=== PATIENT | male | born 1980 | race Caucasian/White ===

== ENCOUNTER 2020-01-11 01:05 | Emergency (ER) | payer MEDICAID, SELFPAY ==
[2020-01-11 01:51] VITALS: BP 136/78; BP 150/88; PULSE 60; PULSE 67; RESP 16; TEMP 36.9; O2SAT 100
--- NOTE | 2020-01-11 02:40 | ECG_ITS ---
Test Reason : OVERDOSE Blood Pressure : / mmHG Vent. Rate : 058 BPM Atrial Rate : 058 BPM P-R Int : 176 ms QRS Dur : 106 ms QT Int : 452 ms P-R-T Axes : 078 093 068 degrees QTc Int : 443 ms Sinus bradycardia Rightward axis Borderline ECG No previous ECGs available Referred By: Lucero Strauss Electronically Signed By:EVELYN JORGE MD
[2020-01-11 02:47] LABS: Amphetamine Screen Urine Not Detected (Not Detect); Barbiturates, Urine Not Detected (Not Detect); Benzodiazepines Screen Urine Not Detected (Not Detect); Cannabinoid Screen Urine Not Detected (Not Detect); Cocaine Screen Urine POSITIVE (Not Detect); Opiate Screen Urine POSITIVE (Not Detect); Phencyclidine Screen Urine Not Detected (Not Detect)
--- NOTE | 2020-01-11 04:09 | PC.NURSE ---
PT SLEEPING, GOOD RESPIRATORY EFFORT AND RATE. PT STATED EARLIER I THINK I'M WITHDRAWING.
--- NOTE | 2020-01-11 04:14 | ED.NAVMDI ---
HPI - Nausea/Vomiting/Diarrhea General Chief complaint: Overdose Stated complaint: VOMITING AFTER DRUG USE Time Seen by Provider: 01/11/20 01:38 Source: patient Mode of arrival: EMS History of Present Illness HPI Narrative: This is a 39-year-old male brought in by EMS after being found in wet clothing at a convenience store and vomiting. Patient denies vomiting any blood and says that he has been using cocaine and heroin but denies any alcohol use. Otherwise, he denies any fevers, chills, new cough, diarrhea, urinary symptoms. Related Data Allergies Allergy/AdvReac Type Severity Reaction Status Date / Time No Known Allergies Allergy Verified 01/11/20 02:21 Review of Systems Review of Systems: Pertinent positives and negatives as stated in HPI 10 point review of systems is otherwise negative. PMFSH Past Medical History Source: nursing notes reviewed Medical History Substance abuse Social History Social History Advance Directives: No Advance Directives Information Provided: No Physical Exam Vital Signs: Vital Signs: Vital Signs Temp Pulse Resp BP Pulse Ox 01/11/20 06:18 55 14 146/88 H 100 01/11/20 01:51 98.5 F 67 16 150/88 H 100 Body Mass Index 30.0 VITAL SIGNS: Reviewed. GENERAL: Well developed, well nourished, in no acute distress. HEAD: Normocephalic/atraumatic, EYES: PERRLA, EOMI intact without pain, no nystagmus/pallor/icterus noted EARS: Ext canals without abnormality, TMs non-bulging and non-erythematous NOSE: Nares patent bilateral OROPHARYNX: no oral lesions noted, posterior pharynx clear and non-erythematous without noted tonsillar enlargement/erythema/exudates NECK: Supple, no adenopathy LUNGS: Normal breath sounds. No adventitious sounds or accessory muscle use. SpO2<100%> CARDIOVASCULAR: Regular rate and rhythm without noted murmurs, no JVD or lower extremity edema. ABDOMEN: Soft, non-tender, non-distended with bowel sounds. No rigidity. No guarding. No palpable masses or hernias noted MUSCULOSKELETAL: No tenderness, deformities, or effusions noted on gross inspection. EXTREMITIES: No cyanosis, clubbing or edema. SKIN: Inspection of the skin reveals no rashes, ulcerations, jaundice, pallor, or petechiae. NEUROLOGIC: Alert and oriented x 4. Strength and sensation to light touch were grossly intact Course Course Course Narrative: This is a 39-year-old male with history and clinical presentation consistent with nausea and vomiting associated with drug use. Patient currently resting comfortably and on review urine drug screen is positive for cocaine and opiates. Patient has had complete resolution of his nausea and vomiting and has been able to tolerate something to drink and eat. He was discharged in stable condition after being offered detox which she promptly declined. MDM - Nausea/Vomiting/Diarrhea Lab Data Labs: Lab Results 01/11/20 Range/Units 02:30 Urine Opiates Screen POSITIVE H (Not Detect) Ur Barbiturates Screen Not Detected (Not Detect) Ur Phencyclidine Scrn Not Detected (Not Detect) Ur Amphetamines Screen Not Detected (Not Detect) U Benzodiazepines Scrn Not Detected (Not Detect) Urine Cocaine Screen POSITIVE H (Not Detect) U Marijuana (THC) Screen Not Detected (Not Detect) ECG Data Interpretation: SB, HR-58, no evidence of ischemia, MS/QTc is within normal limits Discharge Plan Discharge Clinical Impression: Cocaine intoxication Qualifiers: Complication of substance-induced condition: uncomplicated Qualified Code(s): F14.920 - Cocaine use, unspecified with intoxication, uncomplicated Patient Disposition: Home, Self-Care Instructions: Cocaine Abuse (ED) Additional Instructions: It is highly recommended that you should abstain from using any further cocaine or heroin. She had you ever decide to detox please do not hesitate to return to this facility for assistance in achieving this goal. The patient and/or family acknowledge understanding of results (as applicable), diagnosis, treatment plan, need for follow up, and symptoms that should prompt a return to the emergency room. Referrals: Physician,Unknown [Primary Care Provider] - 2 days
--- NOTE | 2020-01-11 04:46 | PC.NURSE ---
PT HAS BEEN SLEEPING FOR THE PAST FEW HOURS, GOOD RESPIRATORY EFFORT AND RATE.
[2020-01-11 06:18] VITALS: BP 146/88; PULSE 55; RESP 14; O2SAT 100
--- NOTE | 2020-01-11 06:21 | PC.NURSE ---
PT AWAKE AND ALERT, EATING BREAKFAST. NO VOMITING SINCE HIS INITIAL ARRIVAL TO ER.
== END 2020-01-11 07:40 | disposition home or self-care (01) ==
PROVIDERS: Emergency Provider Student in an Organized Health Care Education/Training Program
DX: F14.120 Cocaine abuse with intoxication, uncomplicated (principal)
CPT/HCPCS: 80307; 93005; 99283

== ENCOUNTER 2022-12-26 03:19 | Emergency (ER) | payer MEDICAID, SELFPAY ==
--- NOTE | ~2022-12-26 | XR_ITS ---
EXAMINATION: XR RIBS, RIGHT CLINICAL INFORMATION: Fall. Right rib pain. COMPARISON: Previous chest x-ray from earlier the same day TECHNIQUE: 3 views of the right ribs were obtained. FINDINGS: Lungs are clear. No consolidation, pneumothorax, or pleural effusion. The cardiomediastinal silhouette and pulmonary vasculature are normal. Question nondisplaced fractures of the right anterior seventh through 10th ribs. These are age indeterminate. XR/XR ribs RT 2V IMPRESSION: Question nondisplaced fractures of the right anterior seventh through 10th ribs.
--- NOTE | ~2022-12-26 | XR_ITS ---
EXAMINATION: XR CHEST CLINICAL INFORMATION: Fall COMPARISON: 07/03/2018 TECHNIQUE: Frontal view of the chest was obtained. FINDINGS: The lungs are clear with no focal consolidation. No evidence of pneumothorax, pulmonary edema, or pleural effusions. The cardiomediastinal silhouette is unremarkable. Subtle contour deformities of the lateral right eighth, ninth, and 10th ribs, which are age-indeterminate. XR/XR chest 1V IMPRESSION: No acute cardiopulmonary findings. Subtle contour deformities of the lateral right eighth, ninth, and 10th ribs which are age-indeterminate; clinical correlation recommended at this site in the setting of trauma.
[2022-12-26 03:31] VITALS: BP 160/106; PULSE 65; O2SAT 100; BMI 26.7
[2022-12-26 03:36] VITALS: BP 163/100; PULSE 57; RESP 18; O2SAT 100
[2022-12-26] MEDS: Acetaminophen 325 MG TABLET 650 MG PO (03:50)
[2022-12-26 03:54] VITALS: TEMP 36
--- NOTE | 2022-12-26 04:08 | PC.NURSE ---
pt BIBA from gas station for fall. pt a&ox3, pupils pinpoint bilaterally respirations even and unlabored. pt reports using IV heroin prior to arrival, pt reports tripping and falling off of the side of a curb outside of gas station. fall was unwitnessed. pt denies head strike, LOC and blood thinners. pt reports 8/10 right rib pain, no bruising noted. lung sounds clear bilaterally. security at bedside, pt changed over and belongings placed in decon.
--- NOTE | 2022-12-26 04:50 | PC.NURSE ---
pt sleeping comfortably. no visible distress, respiration even and unlabored.
[2022-12-26 05:42] VITALS: BP 160/96; PULSE 77; RESP 18; TEMP 36.2; O2SAT 99
--- NOTE | 2022-12-26 05:43 | PC.NURSE ---
pt repositioned, warm blanket given. pt denies pain at this time. vital signs reassessed.
--- NOTE | 2022-12-26 07:29 | ED_ITS ---
HPI - Fall General Chief Complaint: Fall Stated Complaint: fall after drug use Time Seen by Provider: 12/26/22 06:38 Source: patient and EMS Mode of arrival: EMS Limitations: no limitations History of Present Illness HPI Narrative: 42 year old male with pmhx of polysubstance use presenting to the ED this morning via EMS from gas station complaining of right rib pain s/p fall from standing height. Reports tripping over a curb at a gas station and falling onto his right side. Denies head strike. Denies LOC. Not on AC. Endorses heroin use prior to fall. Denies other illicit drug use or EtOH consumption. His only complaint at this time is right lower rib pain. Denies fever, chills, QUIROZ, dizziness, neck pain, chest pain, SOB, back pain, N/V, diarrhea, constipation, abdominal pain, or LE pain or swelling. Denies SI/HI. Denies AH/VH/TH. History limited due to patient's acute intoxication. Related Data Previous Rx's Medication Instructions Recorded naproxen 500 mg tablet 500 mg PO Q8-12H PRN pain (scale 12/26/22 score 4-6) #14 tabs Allergies Allergy/AdvReac Type Severity Reaction Status Date / Time No Known Allergies Allergy Verified 12/26/22 03:47 [No Known Allergies*] Review of Systems Review of Systems: Constitutional: No fever, chills, fatigue, night sweats, weight changes Eyes: No eye pain, swelling, redness, vision changes, discharge Cardio: No chest pain, palpitations, JORDAN, orthopnea, peripheral edema Pulm: No SOB, cough, sputum, wheezing, dyspnea, hemoptysis MSK: No back pain, neck pain, joint pain, myalgias, + rib pain Skin: No lesions, rashes Neuro: No weakness, numbness, paresthesias, LOC, dizziness, headache Psych: No anxiety/panic, depression, SI/HI, AH/VH All other systems reviewed and are negative. [facility] Past Medical History Attestation statement: The following information was validated with the patient. Source: old records reviewed and nursing notes reviewed Social History Social History Smoked in Last 30 Days: Yes Use of substances other than those prescribed or required for medical reasons: Yes Substance Use Type: Heroin Substance Use Frequency: Daily Last Used Substance: Just Prior to Admission Advance Directives: No Advance Directives Information Provided: No Physical Exam Vital Signs: Vital Signs: Last Vital Signs Temp 97.2 F 12/26/22 05:42 Pulse 50 12/26/22 12:35 Resp 16 12/26/22 12:35 BP 165/84 H 12/26/22 12:35 Pulse Ox 98 12/26/22 12:35 O2 Del Method Room Air 12/26/22 12:35 BMI result Body Mass Index 26.7 VSS Const: General: cooperative, alert and awake Orientation/consciousness: patient oriented x3 Limitations: no limitations HEENT: Head: Yes normal to inspection Ears: hearing grossly normal bilaterally General nose exam: Normal external nose present Mouth: moist mucous membranes abnormal (dry mucous membranes) and malodorous breath Eyes: Conjunctivae: conjunctivae normal Sclerae: sclerae normal Pupils: Pinpoint pupils EOM: EOMs intact bilaterally Neck: Neck: Yes normal visual inspection and Yes no meningeal signs Chest: Other: Anterior/lateral/posterior chest wall without ecchymosis, rash, or deformity. + Tender to palpation over the anterolateral left ribs without deformity or crepitus. Resp: Effort & Inspection: normal respiratory effort Auscultation: clear to auscultation bilaterally Cardio: Rate: regular rate Rhythm: regular rhythm Heart sounds: S1 normal heart sound present and S2 normal heart sound present Peripheral pulses: Peripheral pulses 2+ throughout GI: Inspection: Yes normal to inspection Palpation (GI): Soft to palpation, nontender, no guarding and hepatosplenomegaly present : General: Yes no CVA tenderness Back/Spine/Pelvis: Back: no CVA tenderness Skin: General skin exam: no rashes or lesions noted Neuro: General: patient oriented x3, gait normal, moves all extremities and no meningeal signs Cranial nerves: Yes CN's II-XII intact bilaterally Extrem: General: Yes normal to inspection and Yes full ROM Course Course Course Narrative: 729-- patient's vital signs are stable. on initial examination patient tells me that he tripped over a curb at a gas station. Since this time has had severe right lower rib pain without overlying ecchymoses, deformity, or crepitus. Tender to palpation. CXR obtained by overnight provider does not show acute cardiopulmonary findings however does show subtle contour deformities of the lateral right 8th 9th and 10th ribs with ?fracture, age indeterminate. No concern for flail chest or official trauma. 0807-- Discussed case with my attending, Dr. Garcia, who recommends follow up right rib xrays to determine acute fractures. Patient asking for stronger pain medication secondary to rib pain >> Toradol and Lidoderm patch ordered. 0914-- Patient currently requesting more pain medication. As patient has a history of polysubstance abuse, I explained to the patient that I do not feel co mfortable giving him narcotics. He is now refusing the x-ray of his ribs. I advised the patient that the x-ray of his ribs will help us to better evaluate his rib fractures. States he does not want this and would like to call his ride and leave. I explained to the patient that leaving the ED against medical advice may result in further complications and even . He expressed understanding of this and still would like to leave. 1022-- Discussed case with Kathie Hernandez from addiction medicine who has since evaluated the patient. The patient has expressed desire to restart his methadone. States that if he is able to restart his methadone he will consider proceeding with the xrays. He has now called and canceled his ride. Kathie states that she will touch base with me regarding a starting dose for methadone. 1056-- Kathie recommends a one time dose of Methadone 30mg > ordered. X-ray right ribs ordered. 1300-- x-ray right ribs showing ?nondiscplaced fracture of the lateral right 7- 10th ribs. No evidence of pneumothorax or effusion. > informed patient of results and will educate him on incentive spirometry. Patient states that he is feeling better after receiving his methadone dose. He plans to follow up with [facility] tomorrow for his methadone and will be provided with a last dose letter today. Patient's vitals are still stable. He is awake, speaking in full sentences and expresses understanding. His grandmother will be taking him home. He will be sent home with naproxen for rib pain along with incentive spirometry. Additionally will send him home with 1 dose of Narcan. Educated on strict return precautions. Patient agreeable with plan. All questions answered. Stable for discharge. Reevaluation(s) Reevaluation #1: I discussed case with the MARCOS Dumas: 08:07 Medications Administered Discontinued Medications Generic Name Dose Route Start Last Admin Trade Name Rhea PRN Reason Stop Dose Admin Acetaminophen 650 mg 12/26/22 03:46 12/26/22 03:50 Acetaminophen 325 Mg Tablet PO 12/26/22 03:47 650 mg ONCE ONE Administration Acetaminophen 975 mg 12/26/22 07:53 12/26/22 08:32 Acetaminophen 325 Mg Tablet PO 12/26/22 07:54 Not Given ONCE ONE Ketorolac Tromethamine 30 mg 12/26/22 08:06 12/26/22 08:27 Ketorolac Tromethamine 30 Mg/Ml Vial IM 12/26/22 08:07 30 mg ONCE ONE Administration Lidocaine 1 patch 12/26/22 08:02 12/26/22 08:27 Lidocaine 4 % Patch Adh..Patch TRANSDERMA 12/26/22 08:03 1 patch ONCE ONE Administration Protocol Methadone HCl 30 mg 12/26/22 10:55 12/26/22 11:11 Methadone Hcl 20 Mg/2 Ml Oral.Conc PO 12/26/22 10:56 30 mg ONCE ONE Administration Naloxone HCl 8 mg 12/26/22 09:15 12/26/22 09:43 Naloxone Hcl Nasal Take Home 4 Mg [place] NOSTRILALT 12/26/22 09:16 8 mg ONCE ONE Administration Medical Decision Making Medical Decision Making [facility] Narrative: 42 year old male with pmhx of polysubstance use presenting to the ED this morning via EMS from gas station complaining of right rib pain s/p fall from standing height. VSS. Neuro exam nonfocal. Anterior/lateral/posterior chest wall without ecchymosis, rash, or deformity. + Tender to palpation over the anterolateral left ribs without deformity or crepitus. Concern for polysubstance use vs etoh intoxication. Concern for msk strain/ sprain vs fracture. Low suspicion for flail chest, pneumothorax or pulmonary contusion. No concern for SI or HI. Plan at this Imaging ordered by overnight provider reviewed. Will order right rib xrays and UDS. Differential Diagnosis Differential Diagnoses: The differential diagnosis associated with the presentation includes As above. Admission/Observation Not indicated. Lab Data [facility] Lab Attestation statement: I reviewed the patient's lab results. As above. Independent Interpretation I performed an independent interpretation of an: Plain X-Ray Interpretation: CXR without acute cardio pulmonary findings, agree with radiologist's interpretation. Radiology Impression Discussion of test interpretation with radiology: I have reviewed the radiologist's reading. Radiologist Impression: XR chest 1V IMPRESSION: No acute cardiopulmonary findings. Subtle contour deformities of the lateral right eighth, ninth, and 10th ribs which are age-indeterminate; clinical correlation recommended at this site in the setting of trauma. Independent Historian Clinical information obtained from an independent historian. History obtained from or confirmed by: EMS External Record Review External record reviewed: Inpatient record Tests considered The following testing was considered but not selected: Given patient's fall I considered ordering CT head/C-spine however patient denies head strike or LOC and neuro exam is nonfocal. Not indicated at this time. Prescription Management I considered prescription management with: Pain Medication Critical Care Time Critical Care Time Critical Care Time: No Discharge Plan Discharge Clinical Impression: Closed fracture of rib Patient Disposition: Home, Self-Care Instructions: Rib Fracture (ED), Pulmonary Contusion (ED) Additional Instructions: The x-ray of your ribs today showed possible fracture of your front 7-10 ribs. Naproxen is a pain reliever that has been sent to your pharmacy. Take this as needed for pain. Take this with food. You have also been educated on and provided with incentive spirometry. Use this to help expand her lungs. Do not do drugs. This can kill you. You have been provided with 1 dose of Narcan to go home with. Return to the emergency department if her symptoms persist or worsen. In the case of an emergency call 911. Prescriptions: New naproxen 500 mg tablet 500 mg PO Q8-12H PRN (Reason: pain (scale score 4-6)) Qty: 14 0RF Referrals: [facility] [Provider Group] [facility] [place] [facility] [Provider Group] Interventions: ED Discharge Assessment Last Done: 12/26/22 14:59 Discharge Date/Time: 12/26/22 15:00
[2022-12-26] MEDS: Ketorolac Tromethamine 30 MG/ML VIAL IM (08:27)
[2022-12-26] MEDS: Lidocaine 4 % Patch ADH..PATCH 1 PATCH TRANSDERMA (08:27)
[2022-12-26] MEDS: Naloxone HCl Nasal TAKE HOME 4 MG SPRAY 8 MG NOSTRILALT (09:43)
--- NOTE | 2022-12-26 10:33 | MHC.RECOVRN ---
Met with pt in [facility] after consult placed to CARE Team for substance use. Pt had presented to ED after a fall and question of broken ribs. Pt laying in bed, asleep, wakes to voice but sedated, constricted pupils. Pt reports using heroin, 1 bundle daily, IV, last use 12 hours ago. Also reports cocaine, 0.5 grams, IV, last use a couple days ago. Pt reports he has called for a ride and requested to dc in anticipation of withdrawal and pain r/t ribs. Pt reports he has been on methadone in the past, last 80 mg at [facility] in [place]. Pt reports he will stay for further workup and treatment if methadone can be restarted. Educated pt on appropriate time to restart methadone. Pt agreeable to cancel ride and stay in ED. Discussed with provider, plan to re-evaluate pt and initiate methadone if/when appropriate.
--- NOTE | 2022-12-26 10:50 | PC.NURSE ---
seen by CARE team awaiting methadone verification
--- NOTE | 2022-12-26 11:04 | MHC.RECOVRN ---
Met with pt to follow up after pt reportedly becoming agitated. Pt laying in bed, awake, alert, easily engages in conversation. Pt reporting body aches, muscle cramps, appears slightly diaphoretic, pupils less constricted. Pt requesting methadone. Discussed with provider, plan to initiate methadone 30 mg.
[2022-12-26] MEDS: methADONE HCl 20 MG/2 ML ORAL.CONC 30 MG PO (11:11)
--- NOTE | 2022-12-26 11:15 | PC.NURSE ---
pt medicated per MAY, plan for rib XR - pt agreeable at this time.
--- NOTE | 2022-12-26 11:25 | MHC.RECOVRN ---
Pts referral sent to [facility]. Pt to present to [facility] tomorrow with last dose letter.
[2022-12-26 12:35] VITALS: BP 165/84; PULSE 50; RESP 16; O2SAT 98
--- NOTE | 2022-12-26 13:09 | PC.NURSE ---
pt given last dose letter in signed and sealed envelope, incentive spirometer training provided, narcan at bedside. pt contacted sober ride for discharge home.
== END 2022-12-26 15:00 | disposition home or self-care (01) ==
PROVIDERS: Emergency Provider Emergency Medicine
DX: S22.31XA Fracture of one rib, right side, initial encounter for closed fracture (principal); R07.89 Other chest pain; R07.81 Pleurodynia; W01.10XA Fall on same level from slipping, tripping and stumbling with subsequent striking against unspecified object, initial encounter; Y93.9 Activity, unspecified; Y92.480 Sidewalk as the place of occurrence of the external cause; Y99.9 Unspecified external cause status
CPT/HCPCS: 71045; 71100; 96372; 99284; J1885

== ENCOUNTER 2023-07-04 19:53 | Emergency (ER) | payer MEDICAID, SELFPAY ==
[2023-07-04 20:00] VITALS: BP 158/78; PULSE 82; O2SAT 97
--- NOTE | 2023-07-04 20:01 | ED_ITS ---
HPI - Psych General Stated Complaint: DRUG USE, 1 BAG OF HEROINE Time Seen by Provider: 07/04/23 20:01 Source: patient Mode of arrival: ambulatory Limitations: no limitations History of Present Illness HPI Narrative: 42 yo male admits to using heroin prior to arrival states he was in alley using and it was witnessed no overdose no need for narcan he was given the option by police to either go to nursing home or the hospital. He wants to leave on arrival agrees to VS and will take home narcan has no SI. He is going back to his methadone clinic tomorrow complaint: substance abuse Onset (ago): month(s) Duration: intermittent History of same: Yes Relieving factors: none Exacerbating factors: drug use Context: recent drug abuse Associated psychiatric symptoms: none Associated symptoms: denies other symptoms Treatments prior to arrival: none Related Data Previous Rx's ?Medication ?Instructions ?Recorded naproxen 500 mg tablet 500 mg PO Q8-12H PRN pain (scale 12/26/22 score 4-6) #14 tabs Allergies Allergy/AdvReac Type Severity Reaction Status Date / Time No Known Allergies Allergy Verified 01/17/23 16:06 Review of Systems Review of Systems: Constitutional : No Fever, No Chills, No Fatigue ENT/Mouth : No sore throat, No Rhinorrhea Eyes: No Eye Pain, No Swelling, No Redness Cardiovascular : No Chest Pain, No SOB, No Dyspnea on Exertion Respiratory : No Cough, No Sputum Gastrointestinal : No Nausea, No Vomiting, No Diarrhea, No abdominal Pain Musculoskeletal : No joint pain, No Myalgias, No Joint Swelling Skin : No Skin Lesions, No rash Neuro : No Weakness, No Numbness, No Dizziness, no Headache Psych : No Anxiety/Panic, No Depression All other systems reviewed and are negative [facility] Past Medical History Attestation statement: The following information was validated with the patient. Source: old records reviewed Medical History Substance abuse Social History Social History Patient Tobacco Use Status: Tobacco use Unknown Substance Use Type: Heroin Physical Exam Vital Signs: Appearance: Alert. Oriented X3. No acute distress. Eyes: Pupils equal, round and reactive to light. 3mm ENT: Pharynx normal. atraumatic Neck: Normal inspection. Neck supple. CVS: Normal heart rate and rhythm. Pulses normal. Respiratory: No respiratory distress. Breath sounds normal. Abdomen: Soft and nontender. Skin: Skin warm and dry. Normal skin color. Normal skin turgor. Extremities: No lower extremity edema. No calf ttp Neuro: Oriented X 3. No motor deficit. No sensory deficit. Steady gait Medical Decision Making Medical Decision Making MDM Narrative: 42 yo male with PMH of substance abuse he denies SI he admits to heroin use no narcan given at this time will DC home with narcan he refuses SUDE evaluation plans to go to his own methadone clinic tomorrow. At this time I do not feel I can section him and he is free to go. Differential Diagnosis Differential Diagnoses: The differential diagnosis associated with the pr esentation includes substance abuse Admission/Observation Consideration of admission/observation: Escalation of care including admission/observation considered refuses - no narcan given prehospital he is not intoxicated here wants to leave with narcan Independent Historian Clinical information obtained from an independent historian. History obtained from or confirmed by: EMS External Record Review External record reviewed: Inpatient record Prescription Management I considered prescription management with: Other Discharge Plan Discharge Clinical Impression: Opiate use Instructions: Opioid Use Disorder (ED) Additional Instructions: carry narcan with you at all times return for any worsening symptoms or concerns. Prescriptions: No Action naproxen 500 mg tablet 500 mg PO Q8-12H PRN (Reason: pain (scale score 4-6)) Qty: 14 0RF Print Language: Hebrew
[2023-07-04] MEDS: Naloxone HCl Nasal TAKE HOME 4 MG SPRAY 8 MG NOSTRILALT (20:07)
[2023-07-04 20:18] VITALS: BP 00/00; PULSE 0; RESP 0; TEMP -17.7; TEMP 0; O2SAT 0; BMI 27.5
--- NOTE | 2023-07-04 20:23 | PC.NURSE ---
Pt aox4. Arrived via EMS after bystander called police for pt using IVD. Pt reports not having any medical concerns and does not need to be here. Denies pain. Denies SI/HI. CANDY. MD at bedside.
[2023-07-04 20:24] VITALS: BP 143/92; PULSE 83; RESP 18; TEMP 36.7; O2SAT 98
== END 2023-07-04 20:25 | disposition home or self-care (01) ==
PROVIDERS: Emergency Provider Emergency Medicine
DX: F11.90 Opioid use, unspecified, uncomplicated (principal)
CPT/HCPCS: 99282; 99283

== ENCOUNTER 2023-12-28 18:08 | Emergency (ER) | payer MEDICAID, SELFPAY ==
[2023-12-28 18:15] VITALS: BP 150/86; PULSE 84; O2SAT 98
[2023-12-28 18:25] VITALS: BP 136/79; PULSE 88; RESP 20; TEMP 37.9; O2SAT 96; BMI 25.8
[2023-12-28 18:27] VITALS: BP 136/79; PULSE 88; RESP 20; TEMP 37.9; O2SAT 96
--- NOTE | 2023-12-28 18:48 | ED_ITS ---
HPI - Overdose General Chief Complaint: Overdose Stated Complaint: found unconscious, heroine use, no narcan given Time Seen by Provider: 12/28/23 18:22 Source: patient and EMS Mode of arrival: EMS Limitations: no limitations History of Present Illness ED Provider: Dr. Josette Mendoza HPI Narrative: Patient comes to the emergency room via ambulance. Patient was found slumped over a super marked after using 2-3 bags of heroin. Narcan was given. Patient states that this was an accidental overdose, patient adamant that he does not have any SI or HI thoughts or prior attempts. Related Data Previous Rx's ?Medication ?Instructions ?Recorded naproxen 500 mg tablet 500 mg PO Q8-12H PRN pain (scale 12/26/22 score 4-6) #14 tabs Allergies Allergy/AdvReac Type Severity Reaction Status Date / Time No Known Allergies Allergy Verified 12/28/23 18:26 Review of Systems Review of Systems: Constitutional : No Weight loss, No Fever, No Chills, No Night Sweats, No Fatigue, No Malaise ENT/Mouth : No Hearing loss, No Ear Pain, No Nasal Congestion, No Sinus Pain, No Hoarseness, No sore throat, No Rhinorrhea, No Swallowing Difficulty Eyes: No Eye Pain, No Swelling, No Redness, No Foreign Body, No Discharge, No Vision Changes Cardiovascular : No Chest Pain, No SOB, No Dyspnea on Exertion, No Orthopnea, No Edema, No Palpitations Respiratory : No Cough, No Sputum, No Wheezing, No Smoke Exposure, No Dyspnea Gastrointestinal : No Nausea, No Vomiting, No Diarrhea, No Constipation, No abdominal Pain, No Hematochezia, No Melena Genitourinary : no irregular bleeding, No Dysuria, No Urinary Frequency, No He maturia, No Urinary Incontinence, No Urgency, No Flank Pain, No Urinary Flow Changes, No Hesitancy Musculoskeletal : No joint pain, No Myalgias, No Joint Swelling Skin : No Skin Lesions, No rash Neuro : No Weakness, No Numbness, No Paresthesias, No Loss of Consciousness, No Dizziness, No Headache Psych : No Anxiety/Panic, No Depression, No SI/HI/AH/VH, admits to polysubstance abuse Heme/Lymph: No Bruising, No Bleeding,No Lymphadenopathy Endocrine : No Polyuria, No Polydipsia, No Temperature Intolerance PMFSH Past Medical History Medical History Substance abuse Social History Social History Patient Tobacco Use Status: Tobacco use Unknown Substance Use Type: Heroin Do you have a plan to hurt others: No Plan Physical Exam Vital Signs: Vital Signs: Last Vital Signs Temp 100.2 F 12/28/23 18:27 Pulse 88 12/28/23 18:27 Resp 20 12/28/23 18:27 BP 136/79 12/28/23 18:27 Pulse Ox 96 12/28/23 18:27 O2 Del Method Room Air 12/28/23 18:27 BMI result Body Mass Index 25.8 Const: Other: Appearance: Alert. Oriented X3. No acute distress. Eyes: Pupils equal, round and reactive to light. ENT: Pharynx normal. Neck: Normal inspection. Neck supple. No lymph nodes noted. No crepitus CVS: Normal heart rate and rhythm. Pulses normal. Normal S1 and S2 Respiratory: No respiratory distress. Breath sounds normal. No Wheezing. No rales Abdomen: Soft and nontender. No rigidity. No distention. Skin: Skin warm and dry. Normal skin color. Normal skin turgor. Extremities: No lower extremity edema. No Lacerations. No Rash Neuro: Oriented X 3. No motor deficit. No sensory deficit. Moving all extremities. No slurred speech. CN 2 through 12 grossly intact Psych: calm, cooperative, normal affect Medical Decision Making Medical Decision Making MDM Narrative: Patient was here approximately 1 hour, patient awake, alert and oriented x3, vitals stable. Patient refusing any further care, requesting to be discharged after he eats a turkey sandwich. -patient has not had any oxygen desaturations, patient's gait steady -patient was given a prescription of naloxone for home -declined to be seen by the care team or oil recovery unit operator Discharge Plan Discharge Clinical Impression: Drug overdose Patient Disposition: Home, Self-Care Instructions: Adult Overdose (ED) Additional Instructions: Please follow-up with your primary care physician tomorrow. If you have any worsening or new symptoms, please return to the emergency room or call 911 Prescriptions: No Action naproxen 500 mg tablet 500 mg PO Q8-12H PRN (Reason: pain (scale score 4-6)) Qty: 14 0RF Print Language: Ukrainian
--- NOTE | 2023-12-28 18:55 | PC.NURSE ---
Pt. refused discharge VS
[2023-12-28 18:56] VITALS: BP 136/79; PULSE 88; RESP 20; TEMP 37.9; O2SAT 96
[2023-12-28] MEDS: Naloxone HCl Nasal TAKE HOME 4 MG SPRAY 8 MG NOSTRILALT (18:58)
== END 2023-12-28 18:59 | disposition home or self-care (01) ==
LOC: HO.ED 18:59
PROVIDERS: Emergency Provider Emergency Medicine
DX: T40.1X1A Poisoning by heroin, accidental (unintentional), initial encounter (principal); R40.4 Transient alteration of awareness; Y92.89 Other specified places as the place of occurrence of the external cause
CPT/HCPCS: 99284

== ENCOUNTER 2024-03-23 01:02 | Emergency (ER) | payer MEDICAID, SELFPAY ==
[2024-03-23] VITALS (12 sets, daily range): BP systolic 95–162; BP diastolic 52–100; PULSE 36–60; RESP 7–16; TEMP 34.8–36.5; O2SAT 97–100; BMI 23.1
--- NOTE | 2024-03-23 | ECG_ITS ---
Test Reason : OD Blood Pressure : / mmHG Vent. Rate : 038 BPM Atrial Rate : 038 BPM P-R Int : 196 ms QRS Dur : 106 ms QT Int : 552 ms P-R-T Axes : 067 086 063 degrees QTc Int : 438 ms Marked sinus bradycardia Abnormal ECG When compared with ECG of 11-JAN-2020 03:28, Vent. rate has decreased BY 20 BPM Referred By: Generic ED Physician Electronically Signed By:Santiago Henson
--- NOTE | ~2024-03-23 | CT_ITS ---
CLINICAL HISTORY: etoh? od, AMS, possible fall CT head without contrast Comparison: None Findings: No intracranial mass, midline shift, hydrocephalus, or acute hemorrhage. No acute process in sinuses or mastoids. No acute bony abnormality. Impression: No acute intracranial process This document has been electronically signed by: Anselmo Moreira MD on 03/23/2024 02:49:10
--- NOTE | 2024-03-23 01:29 | ED_ITS ---
HPI - General Adult General Chief complaint: Overdose Stated complaint: OD was given Narcan, A&O Time Seen by Provider: 03/23/24 01:25 Source: EMS Mode of arrival: EMS Limitations: other History of Present Illness ED Provider: Dr. Josette Mendoza HPI narrative: patient comes to the emergency room via ambulance. According to EMS, the patient was found by a bystander unresponsive at the entrance of a market. Bystander administered Narcan and called 911. When EMS arrived, it was noted that patient is bradycardic, heart rate between the 30s and 40s, blood pressure in the low 90s. Patient is only wearing a sweater, current temperature outside is 27 F. does not seem that patient had any falls but still unclear. Patient is under the influence of drugs, responds to name but is unable to give any history. Related Data Previous Rx's ?Medication ?Instructions ?Recorded naproxen 500 mg tablet 500 mg PO Q8-12H PRN pain (scale 12/26/22 score 4-6) #14 tabs Allergies Allergy/AdvReac Type Severity Reaction Status Date / Time No Known Allergies Allergy Verified 03/23/24 01:29 Review of Systems 2 Review of Systems: Yes Unobtainable due to mental status PMFSH Past Medical History Medical History Substance abuse Social History Social History Patient Tobacco Use Status: Tobacco use Unknown Substance Use Type: Heroin Physical Exam ED Vital Signs: Vital Signs - 24 hr 03/23/24 01:27 03/23/24 02:27 Temperature 95.4 F L 95.5 F L Pulse Rate 37 L 49 L Respiratory Rate 7 L 12 Blood Pressure 95/52 L 138/93 H Pulse Oximetry 100 98 Oxygen Delivery Method Room Air Room Air BMI result Body Mass Index 23.1 Const Other: Appearance: Very somnolent, responds to name and falls right back asleep Eyes: pinpoint pupils bilaterally, round and reactive to light. ENT: Pharynx normal. Neck: Normal inspection. Neck supple. No lymph nodes noted. No crepitus CVS: Normal heart rate and rhythm. Pulses normal. Normal S1 and S2 Respiratory: No respiratory distress. Breath sounds normal. No Wheezing. No rales Abdomen: Soft and nontender. No rigidity. No distention. Skin: cold to touch, Normal skin color. Normal skin turgor. Extremities: No lower extremity edema. No Lacerations. No Rash Neuro: Oriented X 3. No motor deficit. No sensory deficit. Moving all extremities. No slurred speech. CN 2 through 12 grossly intact Psych: calm, only responds to name and falls back asleep Course Course Course Narrative: patient has very dry oral mucosa, we will start IV fluids. All of patient's labs and head CT pending patient's respiratory rate drops to 6, intranasal Narcan will be given - rectal temperature 90 degrees fight F. Patient being warmed with warm blankets Medications Administered Discontinued Medications Generic Name Dose Route Start Last Admin Trade Name Freq PRN Reason Stop Dose Admin Sodium Chloride 1,000 mls @ 999 mls/hr 03/23/24 01:33 03/23/24 01:57 Ns IVCONT 03/23/24 02:33 999 mls/hr .Q1H1M ONE Administration Naloxone HCl 4 mg 03/23/24 01:33 03/23/24 01:30 Naloxone Hcl Nasal 4 Mg [place] NOSTRILALT 03/23/24 01:34 4 mg ONCE ONE Administration Medical Decision Making Medical Decision Making [facility] Narrative: my interpretation of EKG: Sinus rhythm, heart rate 38, no ST segment depression or elevation, questionable U-waves, QTC 438 my interpretation of labs: Patient's hematology and chemistry within normal limits. ETOH negative. Patient has not provided a urine sample for urine toxicology head CT does not show any acute intracranial process. Patient is on a Eileen Hugger and has warm blankets, rectal temperature gradually improving - Patient is under physician observation started at 03:29 Lab Data 03/23/24 01:24 03/23/24 01:26 Labs: Lab Results 03/23/24 03/23/24 Range/Units 01:24 01:26 WBC 8.5 (4.8-10.8) X10*3/uL RBC 5.23 (4.60-5.80) X10*6/uL Hgb 14.9 (14.0-18.0) g/dl Hct 43.3 (42.0-52.0) % MCV 82.8 (80.0-98.0) fL MCH 28.5 (27.0-33.0) pg MCHC 34.4 (31.0-36.0) g/dl RDW 13.3 (11.0-16.0) % Plt Count 223 (160-400) X10*3/uL MPV 9.5 (9.4-12.4) fL Absolute Nucleated RBC 0.000 (0.0-0.012) X10*3/uL Nucleated RBC % (auto) 0.0 (0.0-0.2) /100WBC Sodium 141 (135-145) mmol/L Potassium 3.6 (3.3-5.1) mmol/L Chloride 106 (96-108) mmol/L Carbon Dioxide 30 H (22-29) mmol/L Anion Gap 9 L (12-20) BUN 24 H (9-16) mg/dL Creatinine 0.94 (0.5-1.4) mg/dL Estim Creat Clear Calc 105.4 Estimated GFR > 60 Random Glucose 78 (60-115) mg/dL Calcium 8.9 (8.4-10.2) mg/dL Total Bilirubin 0.3 (0.0-1.0) mg/dL AST 31 (5-37) U/L ALT 34 (0-40) U/L Alkaline Phosphatase 60 (39-117) U/L Total Protein 6.5 (6.5-8.0) g/dL Albumin 3.5 (3.5-5.0) g/dL Ethyl Alcohol < 10 mg/dL Critical Care Time Critical Care Time Critical Care Time: Yes Total Critical Care Time: 60 Attestation: I have personally provided critical care time. Time includes review of lab data, radiology results, discussion with consultants, and monitoring for potential decompensation. Intervention performed as documented. Discharge Plan Discharge Clinical Impression: Drug overdose, Hypothermia Patient Disposition: Still a Patient Instructions: Acute Hypothermia (ED), Adult Overdose (ED) Additional Instructions: Please follow-up with your primary care physician tomorrow. If you have any worsening or new symptoms, please return to the emergency room or call 911 Prescriptions: No Action naproxen 500 mg tablet 500 mg PO Q8-12H PRN (Reason: pain (scale score 4-6)) Qty: 14 0RF Print Language: Vincentian
[2024-03-23] MEDS: Naloxone HCl Nasal 4 MG SPRAY NOSTRILALT (01:30)
[2024-03-23 01:32] LABS: Hematocrit 43.3 % (42.0-52.0); Hemoglobin 14.9 g/dl (14.0-18.0); Mean Corpuscular HGB Conc 34.4 g/dl (31.0-36.0); Mean Corpuscular Hemoglobin 28.5 pg (27.0-33.0); Mean Corpuscular Volume 82.8 fL (80.0-98.0); Mean Platelet Volume 9.5 fL (9.4-12.4); Platelet Count 223 X10*3/uL (160-400); Red Blood Count 5.23 X10*6/uL (4.60-5.80); Red Cell Distribution Width 13.3 % (11.0-16.0); White Blood Count 8.5 X10*3/uL (4.8-10.8)
--- NOTE | 2024-03-23 01:32 | PC.NURSE ---
Pt arousable to touch and name calling able to answer some questions, HR in 30's, pt hypothermic rectal temp 95.4, RR:7, spo2:100%, IV #20 placed in R-AC, labs drawn and sent, pt endorses snorting cocaine and smoking marijuana but denies other drug use. Security confiscated belongings. aware, verbal order to give Narcan; given and pt lifted head up but fell back to sleep. minimally effective.
--- NOTE | 2024-03-23 01:48 | MHC.EDTECH ---
Patient BIBA,security at bedside to assist with changeover,patient was placed on the traffic monitor specialist,vitals taken,BP is low,continuous rectal probe placed patient's temp 95.4,RN/MD at bedside, EKG taken per order and signed by provider. All Belongings locked in [place].
[2024-03-23 01:56] LABS: Alanine Aminotransferase 34 U/L (0-40); Albumin Level 3.5 g/dL (3.5-5.0); Anion Gap 9 (12-20); Aspartate Amino Transferase 31 U/L (5-37); Bilirubin Total 0.3 mg/dL (0.0-1.0); Blood Urea Nitrogen 24 mg/dL (9-16); Calcium 8.9 mg/dL (8.4-10.2); Carbon Dioxide 30 mmol/L (22-29); Chloride 106 mmol/L (96-108); Creatinine Clr Calc Pharmacy 105.4; Estimated Glomerular Filt Rate > 60; Ethanol < 10 mg/dL; Glucose Random 78 mg/dL (60-115); Potassium 3.6 mmol/L (3.3-5.1); Sodium 141 mmol/L (135-145); Total Protein 6.5 g/dL (6.5-8.0)
[2024-03-23] MEDS: 0.9 % Sodium Chloride 1,000 ML 999 ML IVCONT (01:57)
[2024-03-23 02:33] LABS: Alkaline Phosphatase 60 U/L (39-117)
--- NOTE | 2024-03-23 06:31 | MHC.EDTECH ---
Rounds and vitals completed,continuous rectal probe removed,patient is awake,eating a turkey sandwich,pt given a can of gingerale and cheese sticks.
[2024-03-23] MEDS: methADONE HCl 20 MG/2 ML ORAL.CONC 30 MG PO (12:26)
--- NOTE | 2024-03-23 12:48 | PC.NURSE ---
Pt rests quietly for most of the morning. Upon waking, Pt requests food and Methadone. Pt met with licensed real estate broker and plan in place to start Methadone and seek placement at detox location. Pt medicated with 30mg Methadone per MAR and Pt is grateful. Pt calls this RN to bedside and states he now wishes to be d/c'd from ED and no longer wishes for placement at a detox facility. Pt states he needs to get some of his affairs in order prior to being away for treatment. continuous process rotary drum tanner made aware and met with Pt to provider resources. ED provider at bedside now. Awaiting dispo.
[2024-03-23] MEDS: Naloxone HCl Nasal TAKE HOME 4 MG SPRAY 8 MG NOSTRILALT (13:05)
--- NOTE | 2024-03-23 13:05 | MHC.RECOVRN ---
Met with pt again after methadone administration. Pt no longer interested in ATS. Wants to go home as he has some things he needs to take care of before seeking treatment for his substance use disorder. Written materials and resources regarding harm reduction and ATS facilities provided and reviewed with pt. Pt stated he is planning to walk-in to the [facility] on Monday to discuss MAT.
== END 2024-03-23 13:14 | disposition home or self-care (01) ==
PROVIDERS: Emergency Provider Emergency Medicine
DX: T50.901A Poisoning by unspecified drugs, medicaments and biological substances, accidental (unintentional), initial encounter (principal); R40.0 Somnolence; R00.1 Bradycardia, unspecified; Y92.89 Other specified places as the place of occurrence of the external cause; F19.10 Other psychoactive substance abuse, uncomplicated
CPT/HCPCS: 36415; 70450; 80053; 80307; 85027; 93005; 96360; 96361; 99285; S9485

== ENCOUNTER → 2024-03-23 01:18 | Outpatient (BNV) | payer MEDICAID, SELFPAY | PROVIDERS: Emergency Provider Emergency Medicine; Visit Provider Internal Medicine Cardiovascular Disease | DX: R94.31 Abnormal electrocardiogram [ECG] [EKG] (principal) | CPT/HCPCS: 93010 ==

== ENCOUNTER → 2024-03-23 01:26 | Outpatient (BNV) | payer MEDICAID, SELFPAY | PROVIDERS: Emergency Provider Emergency Medicine; Visit Provider Radiology Diagnostic Radiology | DX: S06.9X9A Unspecified intracranial injury with loss of consciousness of unspecified duration, initial encounter (principal) | CPT/HCPCS: 70450 ==

== ENCOUNTER 2024-10-24 02:24 | Emergency (ER) | payer OTHER, SELFPAY ==
[2024-10-24] VITALS (8 sets, daily range): BP systolic 137–181; BP diastolic 71–98; PULSE 49–58; RESP 11–15; TEMP 36.9–37.2; O2SAT 96–100; BMI 26.6
--- NOTE | 2024-10-24 | ECG_ITS ---
Test Reason : OD Blood Pressure : */* mmHG Vent. Rate : 55 BPM Atrial Rate : 55 BPM P-R Int : 180 ms QRS Dur : 116 ms QT Int : 466 ms P-R-T Axes : 70 85 70 degrees QTcB Int : 445 ms Sinus bradycardia Minimal voltage criteria for LVH, may be normal variant ( Rai product ) Nonspecific T wave abnormality Abnormal ECG When compared with ECG of 23-Mar-2024 01:18, ST no longer elevated in Inferior leads T wave inversion now evident in Anterior leads Referred By: Generic ED Physician Electronically Signed By: NAS ROSAS MD
[2024-10-24 03:11] LABS: MANUAL DIFF FLAG NO
[2024-10-24 03:16] LABS: Hematocrit 42.5 % (42.0-52.0); Hemoglobin 14.3 g/dl (14.0-18.0); Imm Gran Abs Auto 0.02 X10*3/uL (0.00-0.03); Imm Gran Pct Auto 0.3 % (0.0-0.4); Lymphocytes Absolute Auto 2.0 X10*3/uL (1.2-4.9); Mean Corpuscular HGB Conc 33.6 g/dl (31.0-36.0); Mean Corpuscular Hemoglobin 27.8 pg (27.0-33.0); Mean Corpuscular Volume 82.7 fL (80.0-98.0); NRBC Abs Auto 0.000 X10*3/uL (0.0-0.012); NRBC Pct Auto 0.0 /100WBC (0.0-0.2); Platelet Count 185 X10*3/uL (160-400); Red Blood Count 5.14 X10*6/uL (4.60-5.80); White Blood Count 7.5 X10*3/uL (4.8-10.8)
[2024-10-24 03:26] LABS: Alanine Aminotransferase 35 U/L (0-40); Albumin Level 3.5 g/dL (3.5-5.0); Alkaline Phosphatase 65 U/L (39-117); Anion Gap 13 (12-20); Aspartate Amino Transferase 31 U/L (5-37); Blood Urea Nitrogen 23 mg/dL (9-16); Calcium 8.3 mg/dL (8.4-10.2); Carbon Dioxide 28 mmol/L (22-29); Chloride 108 mmol/L (96-108); Creatinine Clr Calc Pharmacy 97.0; Estimated Glomerular Filt Rate > 60; Potassium 3.8 mmol/L (3.3-5.1); Sodium 145 mmol/L (135-145); Total Protein 7.0 g/dL (6.5-8.0)
--- NOTE | 2024-10-24 03:32 | ED.GENADULT ---
HPI - General Adult General Chief complaint: ETOH/Substance Use Stated complaint: ETOH heroin use 30min ago Time Seen by Provider: 10/24/24 03:18 Source: EMS Mode of arrival: EMS Limitations: altered mental status History of Present Illness ED Provider: Dr. Josette Mendoza HPI narrative: Patient comes to the emergency room from a convenience supermarket. Patient was found sitting up and sleeping. PD was called and then EMS arrived and brought the patient in. Patient did not receive any Narcan. Patient very so somnolent. Denies SI or HI Related Data Previous Rx's ?Medication ?Instructions ?Recorded naproxen 500 mg tablet 500 mg PO Q8-12H PRN pain (scale 12/26/22 score 4-6) #14 tabs Allergies Allergy/AdvReac Type Severity Reaction Status Date / Time No Known Allergies Allergy Verified 10/24/24 02:38 Review of Systems Review of Systems: Yes Other (Under the influence of drugs, very somnolent) PMFSH Past Medical History Medical History Substance abuse Social History Social History Patient Tobacco Use Status: Tobacco use Unknown Substance Use Type: Heroin Physical Exam ED Exam Exam: Appearance: Alert. Very somnolent Eyes: Pinpoint pupils bilaterally, Pupils equal, round and reactive to light. ENT: Pharynx normal. Neck: Normal inspection. Neck supple. No lymph nodes noted. No crepitus CVS: Normal heart rate and rhythm. Pulses normal. Normal S1 and S2 Respiratory: No respiratory distress. Breath sounds normal. No Wheezing. No rales Abdomen: Soft and nontender. No rigidity. No distention. Skin: Skin warm and dry. Normal skin color. Normal skin turgor. Extremities: No lower extremity edema. No Lacerations. No Rash Neuro: Very somnolent, easily arousable and then falls back asleep Psych: Somnolent, under the influence of drugs Vital Signs: Vital Signs - 24 hr 10/24/24 02:37 10/24/24 02:39 Temperature 98.9 F 98.9 F Pulse Rate 58 58 Respiratory Rate 15 15 Blood Pressure 153/71 H 153/71 H Pulse Oximetry 97 97 Oxygen Delivery Method Room Air Room Air BMI result Body Mass Index 26.6 Course Course Course Narrative: Patient reports heroin abuse. Very somnolent, unable to give much history. No signs of trauma. Patient's vitals are stable Medical Decision Making Medical Decision Making [facility] Narrative: Patient is under physician observation waiting to become more awake and alert. Differential Diagnosis Differential Diagnoses: The differential diagnosis associated with the presentation includes (Polysubstance abuse, alcohol abuse) Admission/Observation Consideration of admission/observation: Escalation of care including admission/observation considered (Patient is under physician observation waiting to become more sober and awake and alert) Lab Data 10/24/24 03:05 10/24/24 03:05 Labs: Lab Results 10/24/24 Range/Units 03:05 WBC 7.5 (4.8-10.8) X10*3/uL RBC 5.14 (4.60-5.80) X10*6/uL Hgb 14.3 (14.0-18.0) g/dl Hct 42.5 (42.0-52.0) % MCV 82.7 (80.0-98.0) fL MCH 27.8 (27.0-33.0) pg MCHC 33.6 (31.0-36.0) g/dl RDW 14.1 (11.0-16.0) % Plt Count 185 (160-400) X10*3/uL MPV 9.1 L (9.4-12.4) fL Immature Gran % (Auto) 0.3 (0.0-0.4) % Neut % (Auto) 60.3 (45-73) % Lymph % (Auto) 26.3 (20-40) % [place] % (Auto) 10.0 (2-11) % Eos % (Auto) 2.3 (0-4) % Baso % (Auto) 0.8 (0-2) % Lymph # (Auto) 2.0 (1.2-4.9) X10*3/uL [place] # (Auto) 0.8 (0.1-1.2) X10*3/uL Eos # (Auto) 0.2 (0.0-0.4) X10*3/uL Baso # (Auto) 0.1 (0.0-0.2) X10*3/uL Abs Immat Gran (auto) 0.02 (0.00-0.03) X10*3/uL Absolute Neuts (auto) 4.5 (2.0-8.3) x10*3/uL Absolute Nucleated RBC 0.000 (0.0-0.012) X10*3/uL Nucleated RBC % (auto) 0.0 (0.0-0.2) /100WBC Sodium 145 (135-145) mmol/L Potassium 3.8 (3.3-5.1) mmol/L Chloride 108 (96-108) mmol/L Carbon Dioxide 28 (22-29) mmol/L Anion Gap 13 (12-20) BUN 23 H (9-16) mg/dL Creatinine 0.93 (0.5-1.4) mg/dL Estim Creat Clear Calc 97.0 Estimated GFR > 60 Random Glucose 101 (60-115) mg/dL Calcium 8.3 L D (8.4-10.2) mg/dL Total Bilirubin 0.4 (0.0-1.0) mg/dL AST 31 (5-37) U/L ALT 35 (0-40) U/L Alkaline Phosphatase 65 (39-117) U/L Total Protein 7.0 (6.5-8.0) g/dL Albumin 3.5 (3.5-5.0) g/dL Ethyl Alcohol < 10 mg/dL Critical Care Time Critical Care Time Critical Care Time: Yes Total Critical Care Time: 35 Attestation: I have personally provided critical care time. Time includes review of lab data, radiology results, discussion with consultants, and monitoring for potential decompensation. Intervention performed as documented. Discharge Plan Discharge Clinical Impression: Heroin abuse Patient Disposition: Home, Self-Care Instructions: Opioid Use Disorder (ED) Additional Instructions: Please follow-up with your primary care physician tomorrow. If you have any worsening or new symptoms, please return to the emergency room or call 911 Overdose You were seen in our Emergency Department for an overdose today. You received narcan in order to reverse the effects of overdose. Narcan only lasts about 45 min to 1 hour in the system. You may have been given narcan to take home with you today, please keep it near you if you are going to use again, so others can use it if needed.? The number one risk for fatal overdose is using alone? [facility] is a 17/10 hotline where you can be on the phone with someone while you use, and they can call for help if they suspect an overdose: [phone] Things to look out for when you leave include severe vomiting or diarrhea, headaches, muscle cramps, fever, coughing, chest pain, or if you feel so short of breath you cannot walk to the bathroom. Please seek care and return any time for worsening symptoms.? You may have been provided with safer injection?items, please take time to take care of YOU and your health. Use new supplies whenever possible to lessen the chances of infections and other illnesses.? If you need more supplies, please go [facility],? [address] [place] [address] OR you can call or text to coordinate delivery of safer supplies. If you decide you want to stop or cut down on how much you?re using, please call the numbers on the list provided to you or you can come to our outpatient Addiction Treatment office [facility] (M-F 9am-5p) [address] [place] [address], [address] [place], [place]. [phone] Prescriptions: No Action naproxen 500 mg tablet 500 mg PO Q8-12H PRN (Reason: pain (scale score 4-6)) Qty: 14 0RF Print Language: Iranian
[2024-10-24] MEDS: Naloxone HCl Nasal TAKE HOME 4 MG SPRAY 8 MG NOSTRILALT ×2 (06:05→13:19)
--- NOTE | 2024-10-24 08:17 | PC.NURSE ---
Assumed care of pt approx 0700, pt resting in stretcher with eyes closed and no apparent s/s of distress. Respirations even and unlabored. Sinus argenis on monitor.
--- OUTSIDE RECORDS SUMMARY | 2024-10-24 11:46 | XMS_ITS | Clinical Summary ---
Author Organization [employer] Address [address] [place] [address] Care Team Providers Care Surgical Services Manager Name Role Phone Unavailable Primary Care Provider Unavailabl e Social History Tobacco Use Types Packs/Day Years Used Date Smoking Tobacco: Never Assessed Sex and Gender Information Value Date Recorded Sex Assigned at Not on file Legal Sex Male 1:51 PM EST Gender Identity Not on file Sexual Orientation Not on file Plan of Treatment Health Maintenance Due Date Last Done Comments CT Colonography 1978 Colonoscopy 1978 Colorectal Cancer Screening 1978 Depression Screening 1978 FIT DNA/Cologuard 1978 FIT 1978 FOBT 1978 HIV Screening 1978 Lipid Panel 1978 SDOH Screening 1978 Sigmoidoscopy 1978 Disability Screening 1978 Alcohol/Substance Use Screening 1990 Tobacco Screening 1990 Family Planning (PISQ) 1993 HPV Vaccines (1 - Male 3-dos e series) 1993 Hepatitis C Screening 1996 DTaP/Tdap/Td Vaccines (1 - Tdap) 1997 Hepatitis B Vaccines (1 of 3 - 19+ 3-dose series) 1997 COVID-19 Vaccine ( - 2023-2 5 season) 2023 Influenza Vaccine (#1) 2024 Zoster Vaccines (1 of 2) 2028 RSV Patients and Pa tients Aged 60 years or older (1 - 1-dose 75+ series) 2053 HIB Vaccines Aged Out No longer eligi ble based on patient's age to complete this topic Hepatitis A Vaccines Aged Out No long er eligible based on patient's age to complete this topic IPV Vaccines Aged Out No longer eligi ble based on patient's age to complete this topic Meningococcal B Vaccine Aged Out No l onger eligible based on patient's age to complete this topic Meningococcal Vaccine Aged Out No nany seth eligible based on patient's age to complete this topic Pneumococcal Vaccine: Pediat rics (0 to 5 Years) and At-Risk Patients (6 to 49) Years Aged Out No longer eligible b ased on patient's age to complete this topic RSV under 20 months Aged Out No longe r eligible based on patient's age to complete this topic Rotavirus Vaccines Aged Out No longer eligible based on patient's age to complete this topic
[2024-10-24 12:36] LABS: Cannabinoid Screen Urine Not Detected (Not Detect)
== END 2024-10-24 13:58 | disposition home or self-care (01) ==
PROVIDERS: Emergency Medicine; Emergency Provider Emergency Medicine Emergency Medical Services
DX: F11.10 Opioid abuse, uncomplicated (principal); F14.10 Cocaine abuse, uncomplicated; R00.1 Bradycardia, unspecified; R94.31 Abnormal electrocardiogram [ECG] [EKG]; Z71.51 Drug abuse counseling and surveillance of drug abuser; Z51.81 Encounter for therapeutic drug level monitoring
CPT/HCPCS: 36415; 80053; 80307; 85025; 93005; 99284

== ENCOUNTER → 2024-10-24 02:38 | Outpatient (BNV) | payer OTHER, SELFPAY | PROVIDERS: Emergency Provider Emergency Medicine; Visit Provider Internal Medicine Cardiovascular Disease | DX: R00.1 Bradycardia, unspecified (principal) | CPT/HCPCS: 93010 ==

== ENCOUNTER 2025-03-17 05:20 | Inpatient (IN) | payer OTHER, SELFPAY ==
[2025-03-17] VITALS (14 sets, daily range): BP systolic 133–174; BP diastolic 63–119; PULSE 58–87; RESP 12–20; TEMP 36.8–39.4; O2SAT 94–100; BMI 24.8; BMI 25.0; BMI 24.7
--- NOTE | ~2025-03-17 | CT_ITS ---
EXAMINATION: CT HAND WITH CONTRAST, RIGHT CLINICAL INFORMATION: Rule out necrotizing fasciitis COMPARISON: None TECHNIQUE: Axial imaging. Sagittal and coronal reconstructions. [address] examination was performed using dose optimization techniques as appropriate, variously including the following: *Automated exposure control *Adjustment of mA and/or kV according to patient size (this includes techniques or standardized protocols for targeted exams where dose is matched to indication/reason for exam; i.e. extremities or head) *Use of iterative reconstruction technique FINDINGS: There is soft tissue swelling and intermediate attenuation in the subcutaneous tissues of the imaged forearm and hand, predominantly involving the dorsal aspect. These findings could represent edema or cellulitis. No organized fluid collection or peripherally enhancing fluid collection is identified. There is no abnormal air seen in the soft tissues. No gross edema/fluid is identified in the deep soft tissues/interfascial planes by CT. No organized fluid collection is seen in the deep soft tissues.. Limited evaluation of tendons. No gross tear is identified. CT/CT hand RT w IV con IMPRESSION: *Soft tissue swelling with intermediate attenuation in the subcutaneous tissues of the forearm/hand, more prominently involving dorsal tissues. These findings could represent edema, inflammatory or infectious process. No air is seen in the soft tissues. Necrotizing fasciitis is a clinical diagnosis. Given the clinical concern for necrotizing fasciitis, recommend surgical/infectious disease consultation and management. *No organized fluid collection or drainable abscess is seen. Findings were discussed with MARCOS Delarosa by secure text message on March 17, 2025 at 10:02 AM. Electronically signed by: Cyrus Reddy MD 03/17/2025 10:03 AM [facility]
--- NOTE | 2025-03-17 05:22 | ED.GENADULT ---
[facility] - General Adult General Chief complaint: Extremity Injury, Upper Stated complaint: Shot heroin in R arm 2hrs ago 01/03 pain &swelling Time Seen by Provider: 03/17/25 05:22 Source: patient Mode of arrival: ambulatory Limitations: no limitations History of Present Illness ED Provider: Dr. Jimenez [facility] narrative: 44-year-old male history of IV drug use, opioid use disorder presented hospital today for evaluation of right hand pain. This has been going on for the past week. He noticed the redness in his hand it is getting worse. And it is getting more painful. He is complaining of pain in his right hand. Denies any needle that may be stuck in his right hand. Patient describes this is a burning sensation in the right hand. Related Data Previous Rx's ?Medication ?Instructions ?Recorded naproxen 500 mg tablet 500 mg PO Q8-12H PRN pain (scale 12/26/22 score 4-6) #14 tabs Allergies Allergy/AdvReac Type Severity Reaction Status Date / Time No Known Allergies Allergy Verified 03/17/25 06:12 Review of Systems Review of Systems: Pertinent review of systems as mentioned in [facility]. All other system otherwise negative. [facility] Past Medical History [facility] Narrative: Medical history as mentioned in [facility] Medical History Substance abuse Social History Social History Patient Tobacco Use Status: Tobacco use Unknown Use of substances other than those prescribed or required for medical reasons: Yes Substance Use Type: Heroin Substance Use Frequency: Chronic Longstanding Last Used Substance: Hours (ago) Advance Directives: No Advance Directives Information Provided: No Do you have a plan to hurt others: No Plan Physical Exam ED Exam Exam: General: Appears to be in pain Head: Normacephalic, atraumatic ENT: oral mucosa moist, neck supple, no tracheal deviation Cardiovascular: regular rate, regular rhythm, no murmurs, rubbing, gallops Respiratory: CTAB, no wheeze, rales, rhonchi Gastrointestinal: Soft, non distended, non tender, non guarding Extremities: Right hand cellulitis appreciated on exam, CMS intact in the right upper extremity full range of motion appreciated on exam. Neurological: Awake and alert, no facial droop noted Skin: Warm and dry Psychiatric: Appropriate mood and thoughts Vital Signs: Vital Signs - 24 hr 03/17/25 05:30 03/17/25 06:08 03/17/25 07:13 Temperature 100.5 F H 100.5 F H 101.4 F H Pulse Rate 79 77 75 Respiratory Rate 16 20 18 Blood Pressure 171/119 H 171/119 H 153/91 H Pulse Oximetry 99 99 100 Oxygen Delivery Method Room Air Room Air Room Air 03/17/25 07:32 03/17/25 07:40 03/17/25 08:03 Temperature 101.5 F H 102.9 F H Pulse Rate 82 87 80 Respiratory Rate 16 16 16 Blood Pressure 166/86 H 168/88 H 168/89 H Pulse Oximetry 94 99 98 Oxygen Delivery Method Room Air Room Air Room Air 03/17/25 08:39 03/17/25 10:04 Temperature 101.1 F H Pulse Rate 80 74 Respiratory Rate 20 18 Blood Pressure 162/98 H 166/88 H Pulse Oximetry 98 97 Oxygen Delivery Method Room Air Room Air BMI result Body Mass Index 25.0 Course Course Course Narrative: 7:57 AM 03/17/2025 (CAMERON LESLIE): Patient is more comfortable and sleeping after IV Dilaudid he is pending CT scan. He was already given IV antibiotics by prior provider Reevaluation(s) Reevaluation #1: 10:08 AM 03/17/2025 (CAMERON LESLIE): I have rechecked the arm there is no rapid extension of findings see are similar to on arrival, he has no gas on the CT scan or abscess, vital signs have remained stable at this time I am going to admit and put request into the covering hospitalist Medications Administered Discontinued Medications Generic Name Dose Route Start Last Admin Trade Name Rhea PRN Reason Stop Dose Admin Acetaminophen 975 mg 03/17/25 05:45 03/17/25 06:00 Acetaminophen 325 Mg Tablet PO 03/17/25 05:46 975 mg ONCE ONE Administration Hydromorphone HCl 1 mg 03/17/25 06:56 03/17/25 07:12 Hydromorphone Hcl 1 Mg/Ml Syringe IVPUSH 03/17/25 06:57 1 mg ONCE ONE Administration Protocol Hydromorphone HCl 1 mg 03/17/25 08:34 03/17/25 08:41 Hydromorphone Hcl 1 Mg/Ml Syringe IVPUSH 03/17/25 08:35 1 mg ONCE ONE Administration Protocol Sodium Chloride 1,000 mls @ 999 mls/hr 03/17/25 05:30 03/17/25 07:32 Ns IV 03/17/25 06:30 Infused .Q1H1M CUBA Infusion Vancomycin HCl 2,000 mg in 500 mls @ 250 mls/hr 03/17/25 05:45 03/17/25 09:30 Vancomycin/Ns IV 03/17/25 07:44 Infused ONCE ONE Infusion Clindamycin Phosphate 600 mg in 50 mls @ 100 mls/hr 03/17/25 05:45 03/17/25 06:40 Cleocin IV 03/17/25 06:14 Infused ONCE ONE Infusion Piperacillin Sod/Tazobactam 100 mls @ 200 mls/hr 03/17/25 05:45 03/17/25 06:41 Sod 4.5 gm/ Sodium Chloride IV 03/17/25 06:14 Infused ONCE ONE Infusion Ibuprofen 600 mg 03/17/25 08:08 03/17/25 08:10 Ibuprofen 600 Mg Tablet PO 03/17/25 08:09 600 mg ONCE ONE Administration Iohexol 100 ml 03/17/25 09:03 03/17/25 09:03 Iohexol 350 Mg/Ml 100 Ml Infus..Btl IV 03/17/25 09:04 85 ml ONCE ONE Administration Ketamine HCl 30 mg 03/17/25 05:27 03/17/25 06:00 Ketamine Hcl/Ns 50 Mg/5 Ml Syringe IVPUSH 03/17/25 05:28 30 mg ONCE ONE Administration Ketamine HCl 35 mg 03/17/25 06:12 03/17/25 06:15 Ketamine Hcl/Ns 50 Mg/5 Ml Syringe IVPUSH 03/17/25 06:13 35 mg ONCE ONE Administration Midazolam HCl 4 mg 03/17/25 06:44 03/17/25 07:13 Midazolam Hcl 2 Mg/2 Ml Vial IVPUSH 03/17/25 06:45 4 mg ONCE ONE Administration Procedures Procedure Narrative Procedure Narrative: Ultrasound guided IV placement Ultrasound guided IV placed in left AC vein. Another one was placed in left forearm vein. Both draws back and flushes well. Confirmed with real time imaging and guidance. Medical Decision Making Medical Decision Making MDM Narrative: 44-year-old male presented hospital today for evaluation of right hand cellulitis. History of IV drug use and alcohol use disorder. Concern for partial cellulitis. We will obtain a CT imaging of the hand to evaluate for any sign of necrotizing fasciitis given his pain out of the proportion Patient's hand does appears to be swollen there is a radial pulse on exam. He does have range of motion. We will plan to give patient is IV ketamine for pain control. Sepsis lab work will be obtained including blood culture CBC CMP lactic acid. Fluid will be given to the patient as well. We will plan to cover patient with vancomycin Zosyn and clindamycin. Lab work shows leukocytosis 18.3, patient does have elevated BUN to creatinine ratio IV fluid initiated for the patient. Patient will be signed out to oncoming provider pending CT imaging. Did give patient some IV Versed and IV Dilaudid for his symptoms. Anticipate patient is likely under the influence from possible cocaine in his heroin. The patient appears to be making non sensible conversation with himself. Differential Diagnosis Differential Diagnoses: The differential diagnosis associated with the presentation includes Necrotizing fasciitis, hand cellulitis, sepsis Lab Data MDM Lab Attestation statement: I reviewed the patient's lab results. 03/17/25 05:50 03/17/25 05:50 Labs: Lab Results 03/17/25 03/17/25 Range/Units 05:50 06:50 WBC 18.3 H (4.8-10.8) X10*3/uL RBC 5.00 (4.60-5.80) X10*6/uL Hgb 14.6 (14.0-18.0) g/dl Hct 42.6 (42.0-52.0) % MCV 85.2 (80.0-98.0) fL MCH 29.2 (27.0-33.0) pg MCHC 34.3 (31.0-36.0) g/dl RDW 13.1 (11.0-16.0) % Plt Count 262 D (160-400) X10*3/uL MPV 9.3 L (9.4-12.4) fL Immature Gran % (Auto) 0.5 H (0.0-0.4) % Neut % (Auto) 88.2 H (45-73) % Lymph % (Auto) 6.7 L (20-40) % [place] % (Auto) 4.2 (2-11) % Eos % (Auto) 0.1 (0-4) % Baso % (Auto) 0.3 (0-2) % Lymph # (Auto) 1.2 (1.2-4.9) X10*3/uL [place] # (Auto) 0.8 (0.1-1.2) X10*3/uL Eos # (Auto) 0.0 (0.0-0.4) X10*3/uL Baso # (Auto) 0.1 (0.0-0.2) X10*3/uL Abs Immat Gran (auto) 0.10 H (0.00-0.03) X10*3/uL Absolute Neuts (auto) 16.1 H (2.0-8.3) x10*3/uL Absolute Nucleated RBC 0.000 (0.0-0.012) X10*3/uL Nucleated RBC % (auto) 0.0 (0.0-0.2) /100WBC Hold Blue Top SEE NOTE Sodium 140 (135-145) mmol/L Potassium 3.7 (3.3-5.1) mmol/L Chloride 102 (96-108) mmol/L Carbon Dioxide 28 (22-29) mmol/L Anion Gap 14 (12-20) BUN 20 H (9-16) mg/dL Creatinine 0.76 (0.5-1.4) mg/dL Estim Creat Clear Calc 121.4 Estimated GFR > 60 Random Glucose 117 H (60-115) mg/dL Lactic Acid 1.1 (0.5-2.0) mmol/L Calcium 9.1 D (8.4-10.2) mg/dL Total Bilirubin 0.4 (0.0-1.0) mg/dL AST 32 (5-37) U/L ALT 36 (0-40) U/L Alkaline Phosphatase 70 (39-117) U/L Total Creatine Kinase 171 (38-174) U/L Total Protein 7.0 (6.5-8.0) g/dL Albumin 4.1 (3.5-5.0) g/dL Urine Opiates Screen POSITIVE H (Not Detect) Ur Buprenorphine Scrn Not Detected (Not Detect) ng/mL Ur Oxycodone Screen Not Detected (Not Detect) ng/mL Urine Methadone Screen Positive H (Not Detect) ng/mL Urine Fentanyl Screen POSITIVE H (Not Detect) Ur Barbiturates Screen Not Detected (Not Detect) Ur Phencyclidine Scrn Not Detected (Not Detect) Ur Amphetamines Screen Not Detected (Not Detect) U Benzodiazepines Scrn Not Detected (Not Detect) Urine Cocaine Screen POSITIVE H (Not Detect) U Marijuana (THC) Screen Not Detected (Not Detect) Critical Care Time Critical Care Time Critical Care Time: Yes Total Critical Care Time: 38 Attestation: Time is exclusive of separately billable procedures. Time includes: direct patient care, patient reassessment, coordination of patient care, interpretation of data (laboratory data, pulse oximetry, arterial blood gases and chest xrays), review of patient's medical records, medical consultation and documentation of patient care. Procedures excluded from critical care time: central intravenous line placement and electrocardiography. Discharge Plan Discharge Clinical Impression: Cellulitis, Active substance abuse, Fever, Elevated WBC count Patient Disposition: Admitted As Inpatient Print Language: Israeli
[2025-03-17] MEDS: Ketamine HCl/NS 50 MG/5 ML SYRINGE 30 MG IVPUSH (06:00)
[2025-03-17 06:04] LABS: Hematocrit 42.6 % (42.0-52.0); Hemoglobin 14.6 g/dl (14.0-18.0); Imm Gran Abs Auto 0.10 X10*3/uL (0.00-0.03); Imm Gran Pct Auto 0.5 % (0.0-0.4); Lymphocytes Absolute Auto 1.2 X10*3/uL (1.2-4.9); Mean Corpuscular HGB Conc 34.3 g/dl (31.0-36.0); Mean Corpuscular Hemoglobin 29.2 pg (27.0-33.0); Mean Corpuscular Volume 85.2 fL (80.0-98.0); NRBC Abs Auto 0.000 X10*3/uL (0.0-0.012); NRBC Pct Auto 0.0 /100WBC (0.0-0.2); Platelet Count 262 X10*3/uL (160-400); Red Blood Count 5.00 X10*6/uL (4.60-5.80); White Blood Count 18.3 X10*3/uL (4.8-10.8)
[2025-03-17 06:05] LABS: MANUAL DIFF FLAG NO
[2025-03-17] MEDS: Ketamine HCl/NS 50 MG/5 ML SYRINGE 35 MG IVPUSH (06:15)
[2025-03-17 06:23] LABS: Alanine Aminotransferase 36 U/L (0-40); Albumin Level 4.1 g/dL (3.5-5.0); Alkaline Phosphatase 70 U/L (39-117); Anion Gap 14 (12-20); Aspartate Amino Transferase 32 U/L (5-37); Blood Urea Nitrogen 20 mg/dL (9-16); Calcium 9.1 mg/dL (8.4-10.2); Carbon Dioxide 28 mmol/L (22-29); Chloride 102 mmol/L (96-108); Creatinine Clr Calc Pharmacy 121.4; Estimated Glomerular Filt Rate > 60; Potassium 3.7 mmol/L (3.3-5.1); Sodium 140 mmol/L (135-145); Total Protein 7.0 g/dL (6.5-8.0)
--- NOTE | 2025-03-17 06:25 | PC.NURSE ---
Pt arrives via EMS in severe pain. Reports right hand swelling following IVDU. Right hand is red, swollen, warm, and severely tender to touch. Decreased ROM. Pt is unable to move the fingers or wrist without severe pain. Pt is restless and appears in to be in severe pain and discomfort. MD at bedside called sepsis. Multiple failed attempts at obtaining IV access by this nurse and MD. U/S guided 20G placed on the left AC and 18G on left FA. Pt medicated as per MAY.
[2025-03-17] MEDS: vancomycin/NS 2,000 MG/500 ML PLAST..BAG 250 MG IV (06:41)
[2025-03-17 07:13] LABS: Cannabinoid Screen Urine Not Detected (Not Detect)
--- OUTSIDE RECORDS SUMMARY | 2025-03-17 08:03 | XMS_ITS | Clinical Summary ---
Author Organization [facility] Address [address] [facility] [facility] [address] [place] [address] Care Team Providers Care Postbed Stitcher Name Role Phone Unavailable Primary Care Provider Unavailabl e Encounters Date Type Department Care Team Description 02/06/2025 Patient Outreach [facility] [address] [place] [address] Remington Lambert Recovery Supports from Last 3 Months Social History Tobacco Use Types Packs/Day Years [...] FIT DNA/Cologuard 1978 FIT 1978 FOBT 1978 Lipid Panel 1978 Sigmoidoscopy 1978 Disability Screening 1978 Alcohol/Substance Use Screening 1990 Tobacco Screening 1990 Family Planning (PISQ) 1993 Hepatitis B Vaccines (1 of 3 - 19+ 3-dose series) 1997 COVID-19 Vaccine ( - 2024-2 6 season) 2024 Influenza Vaccine (#1) 2024 DTaP/Tdap/Td Vaccines (2 - T d or Tdap) 04/21/2028 04/21/2018 Zoster Vaccines (1 of 2) 2028 RSV Patients and Pa tients Aged 60 years or older (1 - 1-dose 75+ series) 2053 Pneumococcal Vaccine: Pediat rics (0 to 5 Years) and At-Risk Patients (6 to 49) Years Aged Out 03/30/2013 No longer eligi ble based on patient's age to complete this topic HIB Vaccines Aged Out No longer eligi ble based on patient's age to complete this topic HPV Vaccines Aged Out No longer eligi ble [...]
--- NOTE | 2025-03-17 08:12 | PC.NURSE ---
pt is more relaxed at this time, pain is getting better in the right hand 09/03, pt right hand is very swollen/red/painful pt reports that he shot up heroin in that hand, pt fever keeps climbing up, md aware will be giving Motrin, pt is flushed in his face and appears unkept.
[2025-03-17] MEDS: iohexoL 350 MG/ML 100 ML INFUS..BTL IV (09:03)
--- NOTE | 2025-03-17 10:41 | P.HPHOSP_ITS ---
History of Present Illness Date of Service: 03/17/25 Chief Complaint: fever, hand pain and swelling 44M polysubstance dependence including ivda and ETOH, HCV, homeless, presented with fever, pain and swelling right hand. Patient is vague historian but reports fevers, right hand pain and swelling in edema. Reports day the drugs in due right hand. In ED noted to be septic with fever, leukocytosis. Reports drinking large amounts of vodka daily, last drink on day prior to presentation, denies withdrawal symptoms at this time. Review of Systems 2 Review of Systems: Yes all other systems are reviewed and are negative [facility] Medical History (Updated 03/17/25 @ 10:51 by Vincent Morgan MD) HCV (hepatitis C virus) EtOH dependence Substance abuse Social History Patient Tobacco Use Status: Tobacco use Unknown Use of substances other than those prescribed or required for medical reasons: Yes Substance Use Type: Heroin Substance Use Frequency: Chronic Longstanding Last Used Substance: Hours (ago) Advance Directives: No Advance Directives Information Provided: No Do you have a plan to hurt others: No Plan Meds Allergies Allergy/AdvReac Type Severity Reaction Status Date / Time No Known Allergies Allergy Verified 03/17/25 06:12 Active Medications: Current Medications Acetaminophen (Acetaminophen 325 Mg Tablet) 650 mg PO Q6H PRN PRN Reason: Pain, Mild 1-3,fever,headache Calcium Carbonate (Calcium Carbonate 750 Mg Tab.Chew) 750 mg PO Q4H PRN PRN Reason: Heartburn Enoxaparin Sodium (Enoxaparin Sodium 40 Mg/0.4 Ml Syringe) 40 mg SUBCUT Q24H CUBA Hydromorphone HCl (Hydromorphone Hcl 1 Mg/Ml Syringe) 1 mg IVPUSH Q4H PRN; Protocol PRN Reason: Pain, Severe (Pain Scale 7-10) Magnesium Hydroxide (Milk Of Magnesia 30 Ml Oral.Susp) 30 ml PO DAILY PRN PRN Reason: Constipation Melatonin (Melatonin 3 Mg Tablet) 6 mg PO BEDTIME PRN PRN Reason: Insomnia Pharmacy Consult (Consult Rx Vancomycin Dosing) 1 each MISCELLANE DAILY PRN PRN Reason: Consult order Sodium Chloride (0.9 % Sodium Chloride Flush 3 Ml Syringe) 3 ml IVFLUSH QSHIFT CUBA Physical Exam 2 Vital Signs and Narrative: Vital Signs: Last Vital Signs Temp 101.1 F H 03/17/25 08:39 Pulse 74 03/17/25 10:04 Resp 18 03/17/25 10:04 BP 166/88 H 03/17/25 10:04 Pulse Ox 97 03/17/25 10:04 O2 Del Method Room Air 03/17/25 10:04 BMI result Body Mass Index 25.0 Lethargic, ill-appearing, bilateral hand erythema, right hand swelling with injection [place] Results Labs 03/17/25 05:50 03/17/25 05:50 Labs: Laboratory Results - last 24 hr 03/17/25 03/17/25 05:50 06:50 MCV 85.2 MCH 29.2 MCHC 34.3 RDW 13.1 Plt Count 262 D MPV 9.3 L Immature Gran % (Auto) 0.5 H Neut % (Auto) 88.2 H Lymph % (Auto) 6.7 L Bradley % (Auto) 4.2 Eos % (Auto) 0.1 Baso % (Auto) 0.3 Lymph # (Auto) 1.2 Bradley # (Auto) 0.8 Eos # (Auto) 0.0 Baso # (Auto) 0.1 Abs Immat Gran (auto) 0.10 H Absolute Neuts (auto) 16.1 H Absolute Nucleated RBC 0.000 Nucleated RBC % (auto) 0.0 Hold Blue Top SEE NOTE Anion Gap 14 Estim Creat Clear Calc 121.4 Estimated GFR > 60 Random Glucose 117 H Lactic Acid 1.1 Calcium 9.1 D Total Bilirubin 0.4 AST 32 ALT 36 Alkaline Phosphatase 70 Total Creatine Kinase 171 Total Protein 7.0 Albumin 4.1 Urine Opiates Screen POSITIVE H Ur Buprenorphine Scrn Not Detected Ur Oxycodone Screen Not Detected Urine Methadone Screen Positive H Urine Fentanyl Screen POSITIVE H Ur Barbiturates Screen Not Detected Ur Phencyclidine Scrn Not Detected Ur Amphetamines Screen Not Detected U Benzodiazepines Scrn Not Detected Urine Cocaine Screen POSITIVE H U Marijuana (THC) Screen Not Detected Imaging Radiologist's Impressions: Impressions Hand CT 03/17/25 08:59 IMPRESSION: *Soft tissue swelling with intermediate attenuation in the subcutaneous tissues of the forearm/hand, more prominently involving dorsal tissues. These findings could represent edema, inflammatory or infectious process. No air is seen in the soft tissues. Necrotizing fasciitis is a clinical diagnosis. Given the clinical concern for necrotizing fasciitis, recommend surgical/infectious disease consultation and management. *No organized fluid collection or drainable abscess is seen. Findings were discussed with MARCOS Delarosa by secure text message on March 17, 2025 at 10:02 AM. Electronically signed by: Cyrus Reddy MD 03/17/2025 10:03 AM [facility] Assessment and Plan (1) Cellulitis: Qualifiers: Laterality: right Site of cellulitis: extremity Site of cellulitis of extremity: upper extremity Qualified Code(s): L03.113 - Cellulitis of right upper limb Status: Acute Plan 44M polysubstance dependence including ivda and ETOH, HCV, homeless, presented with fever, pain and swelling right hand Sepsis due to right hand cellulitis due to IV drug use Vancomycin, follow up cultures, ortho eval Polysubstance dependence Addiction eval Alcohol dependence Monitor for withdrawal Vitamin supplement Hepatitis-C Outpatient follow up DVT prophylaxis with Lovenox Full code Given sepsis and high-risk for bacteremia given IV drug use expected require at least 2 midnights inpatient Quality Stroke Does the patient have a stroke diagnosis?: No VTE Prior VTE?: No VTE Risk Level:: Medical - moderate - high VTE Device Contraindication: Treatment Not Indicated VTE Drug Contraindication: N/A - Med Ordered
--- NOTE | 2025-03-17 11:32 | PHA.MEDREC ---
Addendum entered by Debo Wood RPh 03/17/25 11:37: Reviewed by [facility] Original Note: Pharmacy Consult ? Medication Reconciliation Pharmacy has completed the medication reconciliation. Pt very somnolence at this time and was able to confirm by shaking head yes or no to verify he is only taking Naproxen as needed for pain and nothing else at this time.
--- NOTE | 2025-03-17 11:52 | PC.NURSE ---
pt reports that he is on methadone called the [facility] in [place] and spoke with Ro pt was last doses on 03/15/25 85mg and was given one take home bottle also called security to do safety search and there was contraband found and disposed by security and belongings list done and belongings secured
--- NOTE | 2025-03-17 12:07 | MHC.RECOVRN ---
Went to ED 11 following request for consult received for polysubstance use. Pt resting in bed with eyes closed. Difficult to arouse but did answer questions with head shakes. Overall, pt appears comfortable at this time and is not displaying any S/S of W/D. Will continue to check on pt. and meet for consult when appropriate.
--- NOTE | 2025-03-17 12:10 | HE.PHANOTE ---
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 Original Note: RE: METHADONE DOSING Last dose of methadone 85 mg was given on 03/15/25 with 1 take home dose at [facility] per Ro.
[2025-03-17] MEDS: methADONE HCl 20 MG/2 ML ORAL.CONC 85 MG PO (12:25)
--- NOTE | 2025-03-17 12:45 | PHA.PROG ---
Admission Date/Time: March 17, 2025 10:29 Indication: SKIN Weight in k.9 kg Adjusted body weight in Kg: [place] body weight in Kg: Obesity Dosing Indication % IBW: Serum Creatinine - Last 168 Hours 03/17/25 05:50 Creatinine 0.76 Estimated CrCl and GFR - Last 168 Hours 03/17/25 05:50 Estim Creat Clear Calc 121.4 Estimated GFR > 60 Vancomycin Loading Dose: 2000 MG Current Vancomycin Dosing Regimen: 1250 MG Q12H Vancomycin Monitoring using AUC goal of 400 - 600 range with trough as surrogate marker: DCU=278 TROUGH=15.1 Date and Time for next Vancomycin Level to be drawn: 03/18/25 @1700 Pharmacist Comments on Vancomycin Plan: Vancomycin dosing will take advantage of [employer] PAC as a clinical decision support tool that uses Bayesian modeling to calculate individual patient's pharmacokinetic parameters and forecast the patient's drug concentration time course with the target goal AUC 24 range of 400 - 600 mg/L/hr.
--- NOTE | 2025-03-17 15:28 | PC.NURSE ---
assumed care of pt at 1500. report received from Brigida LLAMAS. 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 call daniels within reach, plan of care continues.
[2025-03-17] MEDS: 0.9 % Sodium Chloride Flush 3 ML SYRINGE IVFLUSH ×2 (17:35→19:52)
[2025-03-18] VITALS (10 sets, daily range): BP systolic 129–171; BP diastolic 64–86; PULSE 61–69; RESP 16–18; TEMP 36.8–38.2; O2SAT 96–98
[2025-03-18 06:59] LABS: Hematocrit 47.9 % (42.0-52.0); Hemoglobin 15.6 g/dl (14.0-18.0); Mean Corpuscular HGB Conc 32.6 g/dl (31.0-36.0); Mean Corpuscular Hemoglobin 28.6 pg (27.0-33.0); Mean Corpuscular Volume 87.7 fL (80.0-98.0); NRBC Abs Auto 0.000 X10*3/uL (0.0-0.012); NRBC Pct Auto 0.0 /100WBC (0.0-0.2); Platelet Count 191 X10*3/uL (160-400); Red Blood Count 5.46 X10*6/uL (4.60-5.80); White Blood Count 21.0 X10*3/uL (4.8-10.8)
[2025-03-18 07:03] LABS: Anion Gap 12 (12-20); Blood Urea Nitrogen 16 mg/dL (9-16); Calcium 8.8 mg/dL (8.4-10.2); Carbon Dioxide 24 mmol/L (22-29); Chloride 106 mmol/L (96-108); Creatinine Clr Calc Pharmacy 142.0; Estimated Glomerular Filt Rate > 60; Magnesium 2.1 mg/dL (1.6-2.6); Potassium 3.8 mmol/L (3.3-5.1); Sodium 138 mmol/L (135-145)
[2025-03-18 07:24] LABS: HBS Num1 102.93 mIU/mL (0-7.99); HBc Num1 0.38 S/CO (0.00-0.79); HBsAGNum1 0.39 S/CO (0.00-0.99); HIV Num 1 0.95 S/CO (0.00-0.99); Hepatitis B Surface Antigen Negative (Negative); ~HepC Num1 14.07 S/CO (0.00-0.79); ~Hepatitis B Surface Antibody REACTIVE (Nonreactive); ~Hepatitis C Antibody Reactive (Nonreactive)
[2025-03-18] MEDS: 0.9 % Sodium Chloride Flush 3 ML SYRINGE IVFLUSH ×2 (08:43→15:59)
[2025-03-18] MEDS: Thiamine HCL 100 MG in 0.9 % Sodium Chloride 100 ML 202 MG IV (08:43)
[2025-03-18] MEDS: methADONE HCl 20 MG/2 ML ORAL.CONC 85 MG PO (08:51)
--- NOTE | 2025-03-18 10:25 | P.PNIM_ITS ---
Subjective Subjective Date of Service: 03/18/25 Interval History: right hand pain and swelling about the same Physical Exam 2 Exam: Exam: Lethargic, ill-appearing, bilateral hand erythema, right hand swelling with injection [place] Vital Signs: Vital Signs: Last Vital Signs Temp 98.9 F 03/18/25 07:18 Pulse 64 03/18/25 07:18 Resp 18 03/18/25 07:18 BP 171/86 H 03/18/25 07:18 Pulse Ox 98 03/18/25 07:18 O2 Del Method Room Air 03/18/25 07:18 BMI result Body Mass Index 24.7 Objective Data Active Medications Acetaminophen (Acetaminophen 325 Mg Tablet) 650 mg PO Q6H PRN PRN Reason: Pain, Mild 1-3,fever,headache Last Admin: 03/18/25 02:06 Dose: 650 mg Documented By: PAOLA Calcium Carbonate (Calcium Carbonate 750 Mg Tab.Chew) 750 mg PO Q4H PRN PRN Reason: Heartburn Enoxaparin Sodium (Enoxaparin Sodium 40 Mg/0.4 Ml Syringe) 40 mg SUBCUT Q24H [facility] Last Admin: 03/18/25 08:43 Dose: 40 mg Documented By: NONA Hydromorphone HCl (Hydromorphone Hcl 1 Mg/Ml Syringe) 1 mg IVPUSH Q4H PRN; Protocol PRN Reason: Pain, Severe (Pain Scale 7-10) Last Admin: 03/18/25 08:50 Dose: 1 mg Documented By: NONA Thiamine HCl 100 mg/ Sodium (Chloride) 101 mls @ 202 mls/hr IV DAILY [facility] Last Admin: 03/18/25 08:43 Dose: 202 mls/hr Documented By: NONA Folic Acid 1 mg/ Sodium (Chloride) 50.2 mls @ 100.4 mls/hr IV DAILY [facility] Vancomycin HCl 1,250 mg/ (Sodium Chloride) 250 mls @ 166.667 mls/hr IV Q12H [facility] Last Infusion: 03/18/25 08:45 Dose: Infused Documented By: NONA Magnesium Hydroxide (Milk Of Magnesia 30 Ml Oral.Susp) 30 ml PO DAILY PRN PRN Reason: Constipation Melatonin (Melatonin 3 Mg Tablet) 6 mg PO BEDTIME PRN PRN Reason: Insomnia Methadone HCl (Methadone Hcl 20 Mg/2 Ml Oral.Conc) 85 mg PO DAILY@0800 [facility] Last Admin: 03/18/25 08:51 Dose: 85 mg Documented By: NONA Co-signed By: MELISSA Multivitamins/Vitamin C (Multivitamin Tablet) 1 tab PO DAILY [facility] Last Admin: 03/18/25 08:45 Dose: 1 tab Documented By: NONA Pharmacy Consult (Consult Rx Vancomycin Dosing) 1 each MISCELLANE DAILY PRN PRN Reason: Consult order Sodium Chloride (0.9 % Sodium Chloride Flush 3 Ml Syringe) 3 ml IVFLUSH QSHIFT [facility] Last Admin: 03/18/25 08:43 Dose: 3 ml Documented By: NONA Labs 03/18/25 06:29 03/18/25 06:29 Labs: Laboratory Results - last 24 hr 03/18/25 06:29 MCV 87.7 MCH 28.6 MCHC 32.6 RDW 13.1 Plt Count 191 D MPV 9.7 Absolute Nucleated RBC 0.000 Nucleated RBC % (auto) 0.0 Anion Gap 12 Estim Creat Clear Calc 142.0 Estimated GFR > 60 Random Glucose 119 H Calcium 8.8 Magnesium 2.1 Hep Bs Antigen Negative Hep Bs Antibody REACTIVE Hep B Core Total Ab Nonreactive Hepatitis C Ab (EIA) Reactive H HIV 1&2 Ab/P24 Ag 4thGn Nonreactive Microbiology Microbiology Results: Microbiology 03/17/25 05:56 Blood Culture - Preliminary Blood - Venous No growth after 24 hours. 03/17/25 05:50 Blood Culture - Preliminary Blood - Venous No growth after 24 hours. Assessment and Plan (1) Cellulitis: Status: Acute Plan 44M polysubstance dependence including ivda and ETOH, HCV, homeless, presented with fever, pain and swelling right hand Sepsis due to right hand cellulitis due to IV drug use iv Vancomycin, follow up cultures, d/w ortho no intervention needed at this time Polysubstance dependence Addiction eval hiv negative Alcohol dependence Monitor for withdrawal Vitamin supplement Hepatitis-C Outpatient follow up DVT prophylaxis with Lovenox Full code reason for continued hospitalization:awaiting cultures and defervesecnce, still with sigifniciant pain, swelling, and erythema Quality Stroke Does the patient have a stroke diagnosis?: No VTE Prior VTE?: No VTE Risk Level:: Medical - moderate - high VTE Device Contraindication: Treatment Not Indicated VTE Drug Contraindication: N/A - Med Ordered
--- NOTE | 2025-03-18 14:31 | MHC.RECOVRN ---
Met with pt in after receiving an addiction consult for evaluation of polysubstance use disorder. Pt somewhat somnolent but able to provide brief answers to questions asked. See recovery penny for more info. Pt plans on resuming methadone dosing in the community at [facility] in [place]. Pt states his current dose is satisfactory. Pt asked for some time to think and decide on a power and recovery superintendent referral and LEELEE initiation. He was provided with written materials on harm reduction, recovery supports, and treatment options. He denies questions/concerns at this time. ACS team will f/u with pt to see if he has decided on LEELEE initiation or not.
--- NOTE | 2025-03-18 15:46 | MHC.CM.PN ---
Pt. said he does have a place to go at [facility] in [place]. He goes to [facility] in [place] for Methadone. He is not active with a PCP, used to go to [place] in [place]. He will need assistance with transport home at [place]. DCP: home, self care, CM to follow for DC needs.
[2025-03-18] MEDS: oxyCODONE HCl Immed Release 5 MG TABLET 10 MG PO (17:47)
[2025-03-19] VITALS (11 sets, daily range): BP systolic 100–140; BP diastolic 51–94; PULSE 52–65; RESP 16–18; TEMP 36.8–37.2; O2SAT 95–99
[2025-03-19] MEDS: oxyCODONE HCl Immed Release 5 MG TABLET 10 MG PO ×3 (05:04→18:36)
[2025-03-19 06:43] LABS: Hematocrit 41.5 % (42.0-52.0); Hemoglobin 13.8 g/dl (14.0-18.0); Mean Corpuscular HGB Conc 33.3 g/dl (31.0-36.0); Mean Corpuscular Hemoglobin 28.9 pg (27.0-33.0); Mean Corpuscular Volume 87.0 fL (80.0-98.0); NRBC Abs Auto 0.000 X10*3/uL (0.0-0.012); NRBC Pct Auto 0.0 /100WBC (0.0-0.2); Platelet Count 175 X10*3/uL (160-400); Red Blood Count 4.77 X10*6/uL (4.60-5.80); White Blood Count 13.5 X10*3/uL (4.8-10.8)
[2025-03-19 07:01] LABS: Anion Gap 9 (12-20); Blood Urea Nitrogen 17 mg/dL (9-16); Calcium 8.0 mg/dL (8.4-10.2); Carbon Dioxide 26 mmol/L (22-29); Chloride 108 mmol/L (96-108); Creatinine Clr Calc Pharmacy 139.8; Estimated Glomerular Filt Rate > 60; Magnesium 2.0 mg/dL (1.6-2.6); Potassium 4.0 mmol/L (3.3-5.1); Sodium 139 mmol/L (135-145)
[2025-03-19] MEDS: methADONE HCl 20 MG/2 ML ORAL.CONC 85 MG PO (07:49)
[2025-03-19] MEDS: Thiamine HCL 100 MG in 0.9 % Sodium Chloride 100 ML 202 MG IV (07:51)
--- NOTE | 2025-03-19 12:53 | MHC.CM.PN ---
EMR REVIEWED, PER PT WILL REMIAN INPT FOR CONT'D IV ABX HAND WOUND/CELLULITIS IS NOT IMPROVING, CM WILL CONT TO FOLLOW.
--- NOTE | 2025-03-19 14:17 | P.PNIM_ITS ---
Subjective Subjective Date of Service: 03/19/25 Interval History: right hand cellulitis Review of Systems hand erythema and swelling ,pain seems similar Physical Exam 2 Exam: Exam: more awake but weak, ill-appearing, bilateral hand erythema, right hand swelling with injection maurice cvs: [id number], [id number] res: clear to auscultation ,no rhonchii or wheezing abd: no rebound or guarding ,nt, bs present. ext pulses present , no cyanosis . neuro:moves all ext. Vital Signs: Vital Signs: Last Vital Signs Temp 98.5 F 03/19/25 10:59 Pulse 57 03/19/25 10:59 Resp 16 03/19/25 10:59 BP 121/55 L 03/19/25 10:59 Pulse Ox 97 03/19/25 10:59 O2 Del Method Room Air 03/19/25 10:59 BMI result Body Mass Index 24.7 Objective Data Active Medications Acetaminophen (Acetaminophen 325 Mg Tablet) 650 mg PO Q6H PRN PRN Reason: Pain, Mild 1-3,fever,headache Last Admin: 03/18/25 02:06 Dose: 650 mg Documented By: PAOLA Calcium Carbonate (Calcium Carbonate 750 Mg Tab.Chew) 750 mg PO Q4H PRN PRN Reason: Heartburn Enoxaparin Sodium (Enoxaparin Sodium 40 Mg/0.4 Ml Syringe) 40 mg SUBCUT Q24H [facility] Last Admin: 03/19/25 07:52 Dose: 40 mg Documented By: CHEYANNE Hydromorphone HCl (Hydromorphone Hcl 1 Mg/Ml Syringe) 1 mg IVPUSH Q4H PRN; Protocol PRN Reason: Pain, Severe (Pain Scale 7-10) Last Admin: 03/19/25 08:08 Dose: 1 mg Documented By: CHEYANNE Thiamine HCl 100 mg/ Sodium (Chloride) 101 mls @ 202 mls/hr IV DAILY [facility] Last Infusion: 03/19/25 09:03 Dose: Infused Documented By: CHEYANNE Folic Acid 1 mg/ Sodium (Chloride) 50.2 mls @ 100.4 mls/hr IV DAILY [facility] Last Infusion: 03/19/25 10:44 Dose: Infused Documented By: CHEYANNE Vancomycin HCl 1,500 mg/ (Sodium Chloride) 500 mls @ 333.333 mls/hr IV Q12H [facility] Last Infusion: 03/19/25 10:43 Dose: Infused Documented By: CHEYANNE Magnesium Hydroxide (Milk Of Magnesia 30 Ml Oral.Susp) 30 ml PO DAILY PRN PRN Reason: Constipation Melatonin (Melatonin 3 Mg Tablet) 6 mg PO BEDTIME PRN PRN Reason: Insomnia Methadone HCl (Methadone Hcl 20 Mg/2 Ml Oral.Conc) 85 mg PO DAILY@0800 [facility] Last Admin: 03/19/25 07:49 Dose: 85 mg Documented By: CHEYANNE Co-signed By: PRAVEEN Multivitamins/Vitamin C (Multivitamin Tablet) 1 tab PO DAILY [facility] Last Admin: 03/19/25 07:50 Dose: 1 tab Documented By: CHEYANNE Oxycodone HCl (Oxycodone Hcl Immed Release 5 Mg Tablet) 10 mg PO Q4H PRN PRN Reason: Pain, Moderate(Pain Scale 4-6) Last Admin: 03/19/25 12:47 Dose: 10 mg Documented By: CHEYANNE Pharmacy Consult (Consult Rx Vancomycin Dosing) 1 each MISCELLANE DAILY PRN PRN Reason: Consult order Sodium Chloride (0.9 % Sodium Chloride Flush 3 Ml Syringe) 3 ml IVFLUSH QSHIFT [facility] Last Admin: 03/19/25 08:10 Dose: Not Given Documented By: CHEYANNE Non-Admin Reason: IV Running Labs 03/19/25 06:15 03/19/25 06:15 Labs: Laboratory Results - last 24 hr 03/18/25 03/19/25 17:04 06:15 MCV 87.0 MCH 28.9 MCHC 33.3 RDW 13.2 Plt Count 175 MPV 9.7 Absolute Nucleated RBC 0.000 Nucleated RBC % (auto) 0.0 Anion Gap 9 L Estim Creat Clear Calc 139.8 Estimated GFR > 60 Random Glucose 116 H Calcium 8.0 L D Magnesium 2.0 Random Vancomycin 6.3 L Microbiology Microbiology Results: Microbiology 03/17/25 05:56 Blood Culture - Preliminary Blood - Venous No growth after 48 hours. 03/17/25 05:50 Blood Culture - Preliminary Blood - Venous No growth after 48 hours. Assessment and Plan (1) Cellulitis: Status: Acute Assessment and Plan: 44M polysubstance dependence including ivda and ETOH, HCV, homeless, presented with fever, pain and swelling right hand Sepsis due to right hand cellulitis due to IV drug use iv Vancomycin, follow up cultures, d/w ortho no intervention needed at this time Polysubstance dependence Addiction eval hiv negative Alcohol dependence Monitor for withdrawal Vitamin supplement Hepatitis-C Outpatient follow up DVT prophylaxis with Lovenox Full code reason for continued hospitalization:awaiting cultures and defervesecnce, still with sigifniciant pain, swelling, and erythema Quality Stroke Does the patient have a stroke diagnosis?: No VTE Prior VTE?: No VTE Risk Level:: Medical - moderate - high VTE Device Contraindication: Treatment Not Indicated VTE Drug Contraindication: N/A - Med Ordered
[2025-03-19] MEDS: 0.9 % Sodium Chloride Flush 3 ML SYRINGE IVFLUSH ×2 (15:25→19:55)
[2025-03-20] MEDS: oxyCODONE HCl Immed Release 5 MG TABLET 10 MG PO (00:04)
[2025-03-20 01:04] VITALS: PULSE 58; RESP 16
[2025-03-20 03:01] VITALS: BP 117/63; PULSE 53; RESP 17; TEMP 36.1; O2SAT 98
[2025-03-20 07:28] VITALS: BP 131/74; PULSE 55; RESP 20; TEMP 37.1; O2SAT 100
[2025-03-20 07:46] LABS: Creatinine Clr Calc Pharmacy 151.3; Estimated Glomerular Filt Rate > 60
[2025-03-20 08:23] LABS: Anion Gap 11 (12-20); Blood Urea Nitrogen 20 mg/dL (9-16); Calcium 8.2 mg/dL (8.4-10.2); Carbon Dioxide 23 mmol/L (22-29); Chloride 109 mmol/L (96-108); Potassium 4.4 mmol/L (3.3-5.1); Sodium 139 mmol/L (135-145)
[2025-03-20] MEDS: methADONE HCl 20 MG/2 ML ORAL.CONC 85 MG PO (08:36)
[2025-03-20] MEDS: Thiamine HCL 100 MG in 0.9 % Sodium Chloride 100 ML 202 MG IV (09:29)
[2025-03-20] MEDS: Lactated Ringers 1,000 ML 80 ML IVCONT (09:29)
[2025-03-20 11:22] VITALS: BP 130/81; PULSE 62; RESP 20; TEMP 37.3; O2SAT 97
[2025-03-20 15:19] VITALS: BP 126/58; PULSE 66; RESP 18; TEMP 37.7; O2SAT 98
--- NOTE | 2025-03-20 15:28 | P.PNIM_ITS ---
Subjective Subjective Date of Service: 03/20/25 Interval History: hand cellulitis Review of Systems Underlying cocaine and heroin abuse Physical Exam 2 Exam: Exam: more awake, ill-appearing, bilateral hand erythema, right hand swelling with injection maurice cvs: [id number], [id number] res: clear to auscultation ,no rhonchii or wheezing abd: no rebound or guarding ,nt, bs present. ext pulses present , no cyanosis . neuro:moves all ext. Vital Signs: Vital Signs: Last Vital Signs Temp 99.8 F 03/20/25 15:19 Pulse 66 03/20/25 15:19 Resp 18 03/20/25 15:19 BP 126/58 L 03/20/25 15:19 Pulse Ox 98 03/20/25 15:19 O2 Del Method Room Air 03/20/25 15:19 BMI result Body Mass Index 24.7 Objective Data Active Medications Acetaminophen (Acetaminophen 325 Mg Tablet) 650 mg PO Q6H PRN PRN Reason: Pain, Mild 1-3,fever,headache Last Admin: 03/18/25 02:06 Dose: 650 mg Documented By: PAOLA Calcium Carbonate (Calcium Carbonate 750 Mg Tab.Chew) 750 mg PO Q4H PRN PRN Reason: Heartburn Enoxaparin Sodium (Enoxaparin Sodium 40 Mg/0.4 Ml Syringe) 40 mg SUBCUT Q24H [facility] Last Admin: 03/20/25 08:37 Dose: 40 mg Documented By: CINTHYA Hydromorphone HCl (Hydromorphone Hcl 1 Mg/Ml Syringe) 1 mg IVPUSH Q4H PRN; Protocol PRN Reason: Pain, Severe (Pain Scale 7-10) Last Admin: 03/20/25 13:42 Dose: 1 mg Documented By: CINTHYA Thiamine HCl 100 mg/ Sodium (Chloride) 101 mls @ 202 mls/hr IV DAILY [facility] Last Infusion: 03/20/25 10:20 Dose: Infused Documented By: CINTHYA Folic Acid 1 mg/ Sodium (Chloride) 50.2 mls @ 100.4 mls/hr IV DAILY [facility] Last Infusion: 03/20/25 09:26 Dose: Infused Documented By: CINTHYA Vancomycin HCl 1,250 mg/ (Sodium Chloride) 250 mls @ 166.667 mls/hr IV Q8H [facility] Last Infusion: 03/20/25 13:07 Dose: Infused Documented By: CINTHYA Lactated Ringer's (Lr) 1,000 mls @ 80 mls/hr IVCONT .[id number] [facility] Last Admin: 03/20/25 09:29 Dose: 80 mls/hr Documented By: CINTHYA Magnesium Hydroxide (Milk Of Magnesia 30 Ml Oral.Susp) 30 ml PO DAILY PRN PRN Reason: Constipation Melatonin (Melatonin 3 Mg Tablet) 6 mg PO BEDTIME PRN PRN Reason: Insomnia Methadone HCl (Methadone Hcl 20 Mg/2 Ml Oral.Conc) 85 mg PO DAILY@0800 [facility] Last Admin: 03/20/25 08:36 Dose: 85 mg Documented By: CINTHYA Co-signed By: MARYSOL Multivitamins/Vitamin C (Multivitamin Tablet) 1 tab PO DAILY [facility] Last Admin: 03/20/25 08:38 Dose: 1 tab Documented By: CINTHYA Oxycodone HCl (Oxycodone Hcl Immed Release 5 Mg Tablet) 10 mg PO Q4H PRN PRN Reason: Pain, Moderate(Pain Scale 4-6) Last Admin: 03/20/25 00:04 Dose: 10 mg Documented By: KRYSTA Pharmacy Consult (Consult Rx Vancomycin Dosing) 1 each MISCELLANE DAILY PRN PRN Reason: Consult order Sodium Chloride (0.9 % Sodium Chloride Flush 3 Ml Syringe) 3 ml IVFLUSH QSHIFT [facility] Last Admin: 03/20/25 15:02 Dose: Not Given Documented By: CINTHYA Non-Admin Reason: IV Running Labs 03/19/25 06:15 03/20/25 06:50 Labs: Laboratory Results - last 24 hr 03/19/25 03/20/25 17:04 06:50 Hold Purple Top SEE NOTE Anion Gap 11 L Estim Creat Clear Calc 151.3 Estimated GFR > 60 Random Glucose 101 Calcium 8.2 L Random Vancomycin 9.2 L Assessment and Plan (1) Cellulitis: Status: Acute Assessment and Plan: 44M polysubstance dependence including ivda and ETOH, HCV, homeless, presented with fever, pain and swelling right hand Sepsis due to right hand cellulitis due to IV drug use iv Vancomycin, blood cultures neg@48hrs, d/w ortho no intervention needed at this time id eval pending Polysubstance dependence Addiction eval hiv negative Alcohol dependence Monitor for withdrawal Vitamin supplement Hepatitis-C Outpatient follow up DVT prophylaxis with Lovenox Full code reason for continued hospitalization:awaiting cultures and defervesecnce, still with sigifniciant pain, swelling, and erythema-even on iv antibiotics ,Id eval pending Quality Stroke Does the patient have a stroke diagnosis?: No VTE Prior VTE?: No VTE Risk Level:: Medical - moderate - high VTE Device Contraindication: Treatment Not Indicated VTE Drug Contraindication: N/A - Med Ordered
[2025-03-20] MEDS: Naloxone HCl Nasal TAKE HOME 4 MG SPRAY 8 MG NOSTRILALT (16:51)
--- NOTE | 2025-03-20 16:54 | PM.DS ---
DS: Providers Provider Date of admission: 03/17/25 10:29 Date of discharge: 03/20/25 Primary care physician: Unknown Physician Consults: 03/17/25 10:29 Addiction Medicine Provider Routine Consulting Provider: Addiction Covering Reason for consultation: polysubstance 03/19/25 14:16 Consult to Infectious Diseases Routine Consulting Provider: [facility] Reason for consultation: hand cellulitis Attending physician on discharge: Gabriela Gross Discharging clinician: Gabriela Gross DS: Diagnosis Discharge Diagnosis (1) Cellulitis: Status: Acute DS: Summary Hospital Course Hospital Course: HPI:44M polysubstance dependence including ivda and ETOH, HCV, homeless, presented with fever, pain and swelling right hand. Patient is vague historian but reports fevers, right hand pain and swelling in edema. Reports day the drugs in due right hand. In ED noted to be septic with fever, leukocytosis. Reports drinking large amounts of vodka daily, last drink on day prior to presentation, denies withdrawal symptoms at this time. Hospital course:44M polysubstance dependence including ivda and ETOH, HCV, homeless, presented with fever, pain and swelling right hand:ct hand was done -hand cellulitis , No air is seen in the soft tissues,No organized fluid collection or drainable abscess is seen(please see detailed imaging in the imaging section). Patient was admitted for sepsis secondary to right hand cellulitis in the setting of IV drug use: Started on IV antibiotics, blood cultures sent, case discussed with ortho as per chart review no acute intervention.' Patient urine drug screen positive for-fentanyl/cocaine, Hepatitis C (EIA)-positive. Blood culture Negative at 48 hours Patient had cellulitis slightly improving but not yet significant improvement: Discussed with the patient in detail length-risk of leaving against medical advice including can worsen hand cellulitis, limb loss, sepsis with even . Patient understand but still wants to go-told him to go to nearest emergency room to get evaluated. Also gave him p.o. antibiotic s(he understand that p.o. antibiotic is not optimal). He is alert oriented x3, able to say back above, nursing staff was present during conversation. In addition patient was told to follow-up on hepatitis-C workup outpatient and management and strongly advised to abstain from substance, as well as alcohol use. He understand above in detail length. Assessment and plan coordination time spent 50 minute. Time Attestation Total time managing care of this patient today: 45 mintues. Discharge Coordination Time (in mins): 45 min Quality: Safe Use of Opioids Does Pt have an Active Cancer Diagnosis on the Problem List?: No Quality: Stroke Does the patient have a stroke diagnosis?: No Physical Exam Exam: Exam: refused -please see physical exam from today's note. Vital Signs: Vital Signs: Last Vital Signs Temp 99.8 F 03/20/25 15:19 Pulse 66 03/20/25 15:19 Resp 18 03/20/25 15:19 BP 126/58 L 03/20/25 15:19 Pulse Ox 98 03/20/25 15:19 O2 Del Method Room Air 03/20/25 15:19 BMI result Body Mass Index 24.7 DS: Data Data Completed and Pending Labs on day of discharge: Laboratory Results - last 24 hr 03/19/25 03/20/25 17:04 06:50 Hold Purple Top SEE NOTE Sodium 139 Potassium 4.4 Chloride 109 H Carbon Dioxide 23 Anion Gap 11 L BUN 20 H Creatinine 0.61 Estim Creat Clear Calc 151.3 Estimated GFR > 60 Random Glucose 101 Calcium 8.2 L Random Vancomycin 9.2 L Preliminary micro results at discharge 03/17/25 05:56 Blood Culture - Preliminary Blood - Venous No growth after 48 hours. 03/17/25 05:50 Blood Culture - Preliminary Blood - Venous No growth after 48 hours. Imaging Chest x-ray: Radiologist's impression: ITS Impressions Hand CT 03/17/25 08:59 IMPRESSION: *Soft tissue swelling with intermediate attenuation in the subcutaneous tissues of the forearm/hand, more prominently involving dorsal tissues. These findings could represent edema, inflammatory or infectious process. No air is seen in the soft tissues. Necrotizing fasciitis is a clinical diagnosis. Given the clinical concern for necrotizing fasciitis, recommend surgical/infectious disease consultation and management. *No organized fluid collection or drainable abscess is seen. Findings were discussed with MARCOS Delarosa by secure text message on March 17, 2025 at 10:02 AM. Electronically signed by: Cyrus Reddy MD 03/17/2025 10:[address] [facility] Discharge Plan Discharge Patient Disposition: Left Against Medical Advice Discharge Diagnosis: cellulitis Referrals: Physician,Unknown J [Primary Care Provider, Medical] - 1 Week Discharge Medications: New doxycycline monohydrate 100 mg Capsule 100 mg PO Q12H 9 Days Qty: 19 0RF amoxicillin-pot clavulanate 875-125 mg Tablet 1 tab PO Q12H Qty: 19 0RF Continued naproxen 500 mg tablet 500 mg PO Q8-12H PRN (Reason: pain (scale score 4-6)) Qty: 14 0RF methadone 10 mg/5 mL Solution 85 mg PO DAILY Discharge Orders: Discharge Order (Routine); Ordered 03/20/25 Ordered By: Gabriela Gross Diet: Advance to usual diet Activity on Discharge: As tolerated Print Language: Spanish Care Plan Goals: left ama ,risks explained to him in detial po antibiotics also given . need to follow up further for heaptitis c managment also told to go nearest ed for further management. strongly advised to abstain from drug use . take home narcan given encouraged for hydration and po intake. Health Concerns: as above . Plan of Treatment: as above. Assessment: as above. Discharge Date/Time: 03/20/25 17:02
== END 2025-03-20 17:02 | disposition left against medical advice (07) | DRG 720 ==
LOC: HO.ED 10:09 → HO.EDOVER 10:47 → HO.IMC 16:26
PROVIDERS: Admitting Provider Internal Medicine; Emergency Provider Student in an Organized Health Care Education/Training Program; Visit Provider Internal Medicine
DX: A41.9 Sepsis, unspecified organism (principal); B19.20 Unspecified viral hepatitis C without hepatic coma; F10.20 Alcohol dependence, uncomplicated; F19.20 Other psychoactive substance dependence, uncomplicated; F11.20 Opioid dependence, uncomplicated; L03.113 Cellulitis of right upper limb; Z59.02 Unsheltered homelessness
CPT/HCPCS: 36415; 73201; 80048; 80053; 80202; 80307; 82550; 82565; 83605; 83735; 85025; 85027; 86704; 86706; 86803; 87040; 87340; 87389; 99285; J0736; J1171; J1650; J1808; J1885; J2250; J2543; J3373; J3374; J3411; J7120; Q9967; S9485

== ENCOUNTER → 2025-03-17 10:29 | Outpatient (BNV) | payer OTHER, SELFPAY | PROVIDERS: Admitting Provider Internal Medicine; Emergency Provider Student in an Organized Health Care Education/Training Program; Visit Provider Internal Medicine | DX: L03.113 Cellulitis of right upper limb (principal) | CPT/HCPCS: 99223; 99232; 99233; 99239; 99499 ==